=== PATIENT | female | born 1980 | race Caucasian/White ===

== ENCOUNTER 2023-12-30 14:33 | Inpatient (IN) | payer BC, SELFPAY ==
[2023-12-28 17:59] VITALS: BP 161/97
[2023-12-28 18:18] LABS: % Basophils 0.4 % (0-2); % Eosinophils 0.5 % (0-6); % Immature Granulocytes 0.4 % (0-0.5); % Lymphocytes 23.3 % (20.5-51.1); % Monocytes 5.2 % (1.7-9.3); % Neutrophils 70.2 % (42.2-75.2); Absolute Basophils 0.1 10^3/uL (0-0.2); Absolute Eosinophils 0.1 10^3/uL (0-0.7); Absolute Immature Granulocytes 0.1 10^3/uL (0-0.05); Absolute Monocytes 0.7 10^3/uL (0.1-0.6); Absolute Neutrophils 9.1 10^3/uL (1.4-6.5); Hematocrit 37.3 % (37.0-47.0); Hemoglobin 12.2 g/dL (12.0-16.0); Mean Corp Hgb Conc. 32.7 g/dL (33.0-37.0); Mean Corpuscular Hgb 28.4 pg (27.0-31.0); Mean Corpuscular Volume 86.9 fL (81.0-99.0); Mean Platelet Volume 9.9 fL (7.4-10.4); Nucleated Red Blood Cells % 0 %; Platelet Count 288 10^3/uL (130-400); Red Blood Cell Count 4.29 10^6/uL (4.20-5.40); Red Cell Dist. Width 13.5 % (11.5-14.5)
[2023-12-28 18:29] LABS: ALT (SGPT) 18 U/L (0-35); AST (SGOT) 20 U/L (14-36); Albumin 4.2 g/dl (3.5-5.0); Alkaline Phosphatase 74 U/L (38-126); Blood Urea Nitrogen 14 mg/dl (7-17); Calcium 9.2 mg/dl (8.4-10.2); Carbon Dioxide 27 mmol/L (22-30); Chloride 99 mmol/L (98-107); Glucose 117 mg/dl (70-99); Potassium 4.1 mmol/L (3.5-5.1); Sodium 136 mmol/L (135-145); Total Bilirubin 0.2 mg/dl (0.2-1.3); Total Protein 7.3 g/dl (6.3-8.2); eGFR > 60.00
--- NOTE | 2023-12-28 20:33 | ED.GENMED ---
Addendum entered and electronically signed by Gigi Brantley MD 12/29/23 00:04:
EKG normal sinus rhythm 78 with some sinus arrhythmia. No acute changes. No comparison.
Original Note:
History of Present Illness
General
Chief Complaint: Dizziness
Source: patient
Exam Limitations: none
Time Seen by Provider: 12/28/23 20:17
Travel History
Have you had any contact with someone who has COVID-19?: No
Do you have any symptoms of coronavirus? Fever > 100 degrees, chills, cough, shortness of breath, sore throat, loss of taste or smell, muscle aches, or headache?: No
History of Present Illness
History of Present Illness:
43-year-old female with 8 days of disequilibrium and vertigo. Worse at times with her eyes closed. Not truly positional. Some headache and posterior neck pain. Patient had a CT scan done days ago that showed old cerebellar infarcts. She also
has a history of hypertension.
Past History
Past History
ED Past Medical History: HTN
ED Past Surgical History: Gynecological
Review of Systems
Review of Systems
Constitutional: Reports not done
Respiratory: Reports no symptoms
Cardiac: Reports no symptoms
Neurological: Reports headache
Phy Exam
Physical Exam
Physical Exam:
GENERAL: Alert and oriented in no apparent distress
EYE: Orbits normal. Extraocular muscles intact. No rotatory nystagmus.
NECK: Supple, no significant adenopathy.
ENT: Pharynx without erythema
CARDIAC: Regular rate and rhythm without any obvious murmurs.
LUNGS: Clear breath sounds,normal
ABDOMEN: Soft, without focal tenderness or distention
NEUROLOGICAL: Alert and oriented , speech normal. Cranial nerves II through XII intact. [id number] normal. Moderately ataxic falling to the right. Positive Romberg.
SKIN: Warm and dry, no rash or lesion, no discoloration, skin intact.
MUSCULOSKELETAL: No edema,no deformity.Good color
PSYCH: Normal and appropriate interaction.
Course
Orders/Labs/Results
Orders:
Orders
12/28/23 18:06
C-Reactive Protein Urgent
Comment: ADD ON
Complete Blood Count/With Diff Urgent
Comprehensive Metabolic Panel Urgent
Erythrocyte Sed Rate Urgent
Comment: ADD ON
12/28/23 20:32
Add On- LAB Urgent
Tests Added?: esr,crp
12/28/23 20:39
Electrocardiogram (*1) Stat
Reason for Study: Other
Other Reason for Exam: neuro symptoms
Cardiac Monitoring- Treatment ONCE
EKG- Treatment ONCE
12/28/23 21:38
Admit/Transfer Patient As Directed
Co-Sign Provider:
Level of Care: Observation services
Assign to:: Telemetry
Physician / Group: donald doty
Diagnosis: headache /vertigo concern for cva/ vestibular migraine / neuritis
Reason for Telemetry: CVA/TIA
Date to Stop Telemetry: 12/31/23
Time to Stop Telemetry: 11:00
Reason for Hospitalization: headache /vertigo concern for cva/ vestibular migraine / neuritis
12/28/23 21:46
Code Status As Directed
Resuscitation Status: Full Code
12/28/23 21:58
[facility] mra [MA [facility]] Routine
Comment:
Reason For Exam: cva tia
OK for patient to be off Cardiac Monitoring for MRI: Yes
Recent pill cam endoscopy?: No
Pacemaker/Defibrillator?: No
Neck With Contrast MRA [MA Neck With Contrast] Routine
Comment:
Reason For Exam: cva tia
OK for patient to be off Cardiac Monitoring for MRI: Yes
Recent pill cam endoscopy?: No
Pacemaker/Defibrillator?: No
Diphenhydramine [Benadryl] 12.5 mg IV Q4HPRN PRN
Ketorolac [Toradol] 30 mg IV Q6HPRN PRN
Metoclopramide [Reglan] 5 mg IV Q6HPRN PRN
12/28/23 22:00
0.9% Sodium Chloride 1000 ml [Nss] 1,000 ml IV 80 mls/hr
12/28/23 22:01
Consult Neurology [NEUROLOGY CONSULT] Routine
Consulting Provider: Vinod Butler
Was physician already notified: No
Reason for consult: headache concer migraine vestibular neuritis cva tia with hx of
Consult Notification Routine
Specialty to Notify: Neurology
12/28/23 22:14
PT Consult [Pt Eval And Treat] Routine
Treatment: vestibular therapy
Activity Level: As Tolerated
12/31/23 11:00
DC Protocol for Telemetry ONCE
Abnormal Lab Results
12/28/23
18:06
WBC 13.0 H 10^3/uL
(4.8-10.8)
MCHC 32.7 L g/dL
(33.0-37.0)
Abs Immat Gran (auto) 0.1 H 10^3/uL
(0-0.05)
Absolute Neuts (auto) 9.1 H 10^3/uL
(1.4-6.5)
Absolute Monos (auto) 0.7 H 10^3/uL
(0.1-0.6)
Glucose 117 H mg/dl
(70-99)
12/28/23 18:06
12/28/23 18:06
Vital Signs
Initial and Last Documented VS:
Initial Vital Signs
Temp Pulse Resp BP Pulse Ox
98.2 F 83 16 161/97 98
12/28/23 17:59 12/28/23 17:59 12/28/23 17:59 12/28/23 17:59 12/28/23 17:59
Last Documented Vital Signs
Temp Pulse Resp BP Pulse Ox
98.2 F 80 6 148/104 98
12/28/23 17:59 12/28/23 22:15 12/28/23 22:15 12/28/23 22:00 12/28/23 22:16
MDM/Problems Addressed
Differential Diagnosis Includes:
Concern for cerebellar infarct with posterior head pain ataxia known history of cerebellar infarct.
*Critical Care Note
Total Time (30-74mins, 75-104mins- exclusive of procedures): Not Applicable
ED Attending Note
-
Portions of this chart may have been created with voice recognition software.� Occasional wrong word or��sound alike� substitutions may have occurred due to the inherent limitations of voice recognition software.
Discharge Plan
Departure
Patient Disposition: Admit
Date of Disposition: 12/28/23
Time of Disposition: 20:38
Presentation/result/management discussed w/ accepting MD/DO: Hospitalist
Discharge Problem:
Disequilibrium/ataxia, History of cerebellar infarct
Interventions
Interventions:
*Risk Screen - Suicide Last Done: 12/28/23 21:25
*General Assessment Last Done: 12/28/23 21:25
*Neglect/Abuse Screening Last Done: 12/28/23 21:25
ED- Fall Risk Assessment Last Done: 12/28/23 21:25
*ED COVID-19 Vaccine History Last Done: 12/28/23 17:59
ED- Neurological Assessment Last Done: 12/28/23 21:25
ED- Cardiac Assessment Last Done: 12/28/23 21:25
ED Swallowing Screen Last Done: 12/28/23 21:26
[2023-12-28 21:00] LABS: Erythrocyte Sed Rate 16 mm/hour (0-20)
--- NOTE | 2023-12-28 21:20 | HPS.HSE ---
Addendum entered and electronically signed by Funmilayo Lizama MD 12/28/23 22:27:
Patient seen and examined independently with [facility].� 43-year-old female past medical history of hypertension, obesity, prior lacunar infarcts presenting with severe vertigo particularly with eyes closed as well as headache and neck pain.� She was noted
to have prior lacunar infarcts [address].� She has been having chronic headaches more than 14 days in the month for more than a year described as headache all around her head for which she takes Tylenol, ibuprofen without much
improvement..�
She recently had symptoms of bodyaches, fever 1 week ago which resolved on its own.� She was negative for COVID.� Vertigo started after this acute illness and the headache has been getting worse over the past few days.� She had a CT scan a few days
ago by her primary care physician which showed old lacunar infarcts in the right cerebellum. She also has neck pain and been having vomiting and balance dysfunction without sensitivity to light.� She does sometimes see floaters but recently saw
aerial advertiser without any eye abnormalities apart from stigmatism.� She was started on Medrol Dosepak 3 days ago for vestibular neuritis without any improvement.
History is suggestive of vestibular migraines/possible vestibular neuritis from recent infection vs cerebellar infarcts.� Treat migraine with Toradol, Reglan, Benadryl.� Will check MRI/MRA head and neck.� Discontinue methylprednisolone.� Vestibular
therapy.� Neurology consulted.
Original Note:
Family Physician
-
Family Physician: Danny Reich
Chief Complaint
-
Headache, dizziness
History of Present Illness
43-year-old female complaining of 8 days of vertigo and disequilibrium along with entire head headache including posterior neck pain. She feels a sense of spinning when her eyes are closed and when she is walking feels pulled to the right side.
She does report a week prior to symptoms she had several days of bodyaches with fever states she had negative COVID test at home. She had a CAT scan done on 12/23/2023 showing old lacunar infarcts in the right cerebellum but nothing acute this was
compared to a prior CT on August 06, 2020 which was the same. She reports she had a prior lacunar infarct age 37 was seen at [place] [facility] office she does report she has been getting headaches approximately 15 days out of month
for the past 6 to 7 years but has only seen neurology once. She is not on any preventative medication. Was never formally diagnosed with migraines. She has past medical history of HTN, obesity.
Medical History
Past Medical History
Past Medical History: Reports Other
Additional Past Medical History:
HTN
prior old lacunar infarct approximately age 37 she was seen at [place] [facility] office
obesity
Past Surgical History: Reports Other
Additional Past Surgical History:
Lap band with insertion and then removal
Cholecystectomy
Tonsillectomy
Hysterectomy
section x 2
Tubal ligation
Bladder sling
Social History
Tobacco: Non-smoker
Alcohol: Occasional
Drug: None
Living: With Family (Kids)
Family History
Family History: Other (Father history multiple strokes at age 72 mother living with history of cardiomyopathy)
Allergies / Home Medications
Allergies reflects when Allergies were last updated in [employer].
Home Medications with original date entered in [employer]
Allergy/Medication List:
Allergies
Allergy/AdvReac Type Severity Reaction Status Date / Time
No Known Allergies Allergy Verified 12/28/23 18:02
Home Medications
amlodipine 10 mg tablet 10 mg PO DAILY PRN high BP 12/28/23
meclizine 25 mg tablet 25 mg PO TID PRN vertigo 12/28/23
methylprednisolone 4 mg tablets in a dose pack 4 mg PO USEASDIRECTD 12/28/23
Review of Systems
-
History Source: Patient
A 12 point ROS was completed and negative except as noted: Yes
Constitutional: Denies Fever or Fatigue
EENT: Denies Tearing or Runny Nose
Respiratory: Denies Cough or Trouble Breathing
Cardiac: Denies Chest Pain, Diaphoresis, Palpitations or Syncope
Abdomen/GI: Denies Abdominal Pain, Nausea, Vomiting, Diarrhea, Constipated or Bloody Stools
: Denies Dysuria, Frequency, Flank Pain, Incontinence or Difficulty Voiding
Musculoskeletal: Denies Joint Pain, Joint Swelling or Edema
Skin: Denies Itching or Rash
Neurological: Reports Dizzy and Headache; Denies Weakness or Numbness
Endocrine: Reports No Symptoms
Hematologic/Lymphatic: Reports No Symptoms
Psych: Reports Calm
Physical Exam
Vital Signs
Vital Signs
Temp Pulse Resp BP Pulse Ox
98.2 F 83 16 161/97 98
12/28/23 17:59 12/28/23 17:59 12/28/23 17:59 12/28/23 17:59 12/28/23 17:59
Physical Exam
General: Comfortable and Conversant; No Pain, Fever or Chills
HEENT: NormoCephalic, Anicteric, PERRLA, No Ptosis, Neck Nontender and Other (EOMs intact negative nystagmus); No Pharyngeal Efythema
Respiratory: Clear; No Wheezes, Rales or Rhonchi
Cardiac: S1/S2 and Regular Rhythm
Breast: Deferred by me
GI: Non Tender, Normal Bowel Sounds and No Hepatosplenomegaly
Rectal: Deferred by Provider
Genito-urinary: Deferred by me
Musculoskeletal: No Clubbing, No Cyanosis and No Edema
Skin: Warm and Dry; No Rash or Jaundice
Neuro: AO x 3, No Motor Deficits, Nonfocal/grossly intact, Cranial Nerves Intact and No Sensory Deficits; No Slurred Speech, Facial Droop, Tremors or Sedated
Psych: Calm
Laboratory Results
-
12/28/23 18:06
12/28/23 18:06
Laboratory Results
Total Bilirubin 0.2 mg/dl (0.2-1.3) 12/28/23 18:06
AST 20 U/L (14-36) 12/28/23 18:06
ALT 18 U/L (0-35) 12/28/23 18:06
Alkaline Phosphatase 74 U/L (38-126) 12/28/23 18:06
Data Reviewed
-
Lab Data: Labs Reviewed by me
Impression/Plan
-
Impression/plan:
Observation telemetry
#Headache with vertigo concern for vestibular migraine / vs vestibular neuritis vs cva
#History of old lacunar infarct approximately age 37 seen by [place] [facility] at [facility]
Obtain records from [facility] office
-MRI /. MRA brain/ Neck
-check Lipid profile , hgb a1c
-Iv Toradol, IV reglan, Iv benadryl 12.5 mg
-Iv Nss
- stop medrol dose pack due to no results
-PT/OT consult
CT head 12/23/2023 read by Ronnie Gallardo DO at 10:22 AM
1. There are old lacunar infarcts in the right cerebellum which was seen on the previous examination no other areas of altered attenuation are identified
2. No evidence of intracerebral hemorrhage
3. Ventricles are average size and configuration
4. Calvarium appears to be intact
5. Visualized portions of the paraspinal nasal cyst mastoid air cells are well aerated.
This was compared to previous examination performed on August 06, 2020
#HTN-benign
161/97
-Continue amlodipine 10 mg daily > 140/90
EKG sinus rhythm with marked sinus arrhythmia 75 bpm, QTc 419 MS no other EKGs
#Leukocytosis likely from recent 3-day course methylprednisone
WBC 13,nontoxic-appearing, afebrile
Follow CBC
#Obesity due to excess calorie consumption�BMI 37.8 kg
History of gastric lap band with removal
Weight loss recommended
DVT prophylaxis
SCDs
Full code
[2023-12-28 21:22] VITALS: BP 152/99
[2023-12-28 21:23] VITALS: BMI 37.8
[2023-12-28 22:00] VITALS: BP 148/104
[2023-12-28 22:09] LABS: C-Reactive Protein < 5.00 mg/L (0.0-10.00)
[2023-12-28] MEDS: NSS 1000 IV (22:35)
[2023-12-28] MEDS: FLUSH (NSS) 1 FLUSH IV (22:35)
[2023-12-28] MEDS: REGLAN 5 MG IV (22:42)
[2023-12-28] MEDS: BENADRYL 12.5 MG IV (23:59)
[2023-12-28] MEDS: TORADOL 30 MG IV (23:59)
[2023-12-29] VITALS (8 sets, daily range): BP systolic 122–152; BP diastolic 79–100; PULSE 75–81
[2023-12-29 06:24] LABS: % Basophils 0.4 % (0-2); % Eosinophils 1.3 % (0-6); % Immature Granulocytes 0.4 % (0-0.5); % Lymphocytes 39.3 % (20.5-51.1); % Monocytes 5.9 % (1.7-9.3); % Neutrophils 52.7 % (42.2-75.2); Absolute Eosinophils 0.1 10^3/uL (0-0.7); Absolute Lymphocytes 3.5 10^3/uL (1.2-3.4); Absolute Monocytes 0.5 10^3/uL (0.1-0.6); Absolute Neutrophils 4.7 10^3/uL (1.4-6.5); Hematocrit 34.2 % (37.0-47.0); Hemoglobin 11.3 g/dL (12.0-16.0); Mean Corpuscular Hgb 28.3 pg (27.0-31.0); Mean Corpuscular Volume 85.7 fL (81.0-99.0); Nucleated Red Blood Cells % 0 %; Platelet Count 268 10^3/uL (130-400); Red Blood Cell Count 3.99 10^6/uL (4.20-5.40); Red Cell Dist. Width 13.5 % (11.5-14.5)
[2023-12-29 06:44] LABS: ALT (SGPT) 17 U/L (0-35); AST (SGOT) 18 U/L (14-36); Albumin 3.7 g/dl (3.5-5.0); Alkaline Phosphatase 70 U/L (38-126); Blood Urea Nitrogen 16 mg/dl (7-17); Calcium 9.1 mg/dl (8.4-10.2); Carbon Dioxide 27 mmol/L (22-30); Chloride 104 mmol/L (98-107); Estimated Creatinine Clearance > 125 ml/min; Glucose 125 mg/dl (70-99); HDL Cholesterol 55 mg/dl; LDL Cholesterol, Calculated 68 mg/dl; Potassium 3.7 mmol/L (3.5-5.1); Sodium 138 mmol/L (135-145); Total Bilirubin 0.3 mg/dl (0.2-1.3); Total Cholesterol 148 mg/dl (50-199); Total Protein 6.5 g/dl (6.3-8.2); Triglyceride 129 mg/dl (10-149); Very Low Density Lipoprotein 25 mg/dl (0-30); eGFR > 60.00
--- NOTE | 2023-12-29 08:06 | W.PN.HOSP.TC ---
Today's Communication/Plan
-
see bold
Assessment / Plan
Assessment / Plan
HPI: 43-year-old female complaining of 8 days of vertigo and disequilibrium along with entire head headache including posterior neck pain.� She feels a sense of spinning when her eyes are closed and when she is walking feels pulled to the right
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
this was compared to a prior CT on August 06, 2020 which was the same.� She reports she had a prior lacunar infarct age 37 was seen at [place] [facility]� office she does report she has been getting headaches approximately 15 days out
of month for the past 6 to 7 years but has only seen neurology once.� She is not on any preventative medication.� Was never formally diagnosed with migraines.� She has past medical history of HTN,� obesity.
#Dizziness/vertigo
Appreciate neurology input, check brain MRI
Obtain medical records from outside neurology practices
Start aspirin 81 mg daily, LDL 68
PT/OT
#Headache
Resolved presently, neurology recommends Compazine as needed
#Vitamin D deficiency
Start vitamin D supplementation
#Benign essential hypertension
Continue amlodipine 10 mg daily prn
#Leukocytosis
From recent methylprednisolone use
Resolved
Obesity due to excess calories
Affects all aspects of care
DVT prophylaxis�SCDs
Full code
Physical Exam
General: Obese, no acute distress
HEENT: Normocephalic, Atraumatic, EOMI, MMM
Respiratory: Clear to Auscultation bilaterally
Cardiac: Normal S1/S2, Regular Rate and Rhythm
GI: Soft, Nontender, Nondistended, Normal Bowel Sounds
Extremities: No Clubbing, Cyanosis, or Edema
Neuro: Nonfocal/Grossly Intact
Psych: Calm, Cooperative
Derm: No Visible lesions
Anticipated Discharge: 24 - 48 hours
Subjective/Interval History
-
Date of Service: December 29, 2023
Patient continues to have both lightheadedness and vertigo. She states her symptoms are worse with turning her head to the right. Denies headache. No nausea, no vomiting. No fever.
Objective Data
-
Labs:
Laboratory Results
12/29/23
06:08
WBC 9.0
Hgb 11.3 L
Hct 34.2 L
Plt Count 268
Sodium 138
Potassium 3.7
Chloride 104
Carbon Dioxide 27
BUN 16
Creatinine 0.6
Glucose 125 H
Calcium 9.1
Total Bilirubin 0.3
AST 18
ALT 17
Alkaline Phosphatase 70
Vital Signs:
Vital Signs
Temp Pulse Resp BP Pulse Ox
98.3 F 62 15 125/90 99
12/29/23 07:15 12/29/23 07:00 12/29/23 07:00 12/29/23 05:45 12/29/23 00:00
--- NOTE | 2023-12-29 08:23 | CON.NEURO4 ---
Addendum entered and electronically signed by Vinod Butler MD 12/29/23 15:04:
Studies reviewed.
I have personally examined the patient. I reviewed and agree with the CONTROL SYSTEMS DESIGNER's Note.
My addenda:
Awake, alert, interactive. No acute distress.
Speech intact.
Follows 2-step requests w/o difficulty. No tremor.
Extra-ocular movements suggest decreased upgaze with right eye compared with left.
Facial movements full and symmetric. Hearing intact to normal conversational volume.
Normal UE movements bilaterally.
Neck: full ROM.
Chest: no dyspnea
Heart: no JVD
Ext: (-) Clubbing, (-) Cyanosis, (-) Edema
IMPRESSIONS/RECOMMENDATIONS:
Abrupt onset of Headache, vertigo, and prior history suggestive of abnormal findings by MRI in the right cerebellum chronically. The patient has been seen by an outside neurology group who did not seem to endorse the diagnosis of stroke
Differential diagnosis is broad based on the patient's prior history more than current symptoms. Currently includes vestibular migraine, multiple sclerosis, CADASIL, Idiopathic intracranial hypertension
Would check MRI of brain
Attempt to obtain prior records from outside neurology practice
Consider the use of acetazolamide based on MRI results
Provide aspirin 81 mg daily until clarity regarding diagnosis
Provide prochlorperazine as treatment for significant headache until additional information is obtained
D/W patient
Will continue to follow patient.
Original Note:
Documented by User: MONIKA Malone 12/29/23 12:18
Consultation - Neurology 4
-
CONSULTING PHYSICIAN: Dr. Butler
REFERRING PHYSICIAN: MONIKA Drew
DICTATED BY: MONIKA Malone
DATE/TIME OF REQUEST: 12/28/2023 2201
DATE/TIME OF CONSULTATION: 12/29/2023 0900
Reason for Consultation: headache/vertigo
History of Present Illness:
This is a 43-year-old right handed female with a past medical history of HTN, headaches, stroke and obesity who presented to the ER complaining of 8 days of vertigo and disequilibrium along with entire head headache including posterior neck pain.�
She reports she started with headache pressure like about 9 days ago with associated neck pain. She reports dizziness started about 8 days ago and balance difficulty about 7 days ago. She describes dizziness as a sense of spinning that is worse
with eyes closed. She denies any weakness, but when ambulating reports he feels she is falling to her right.� She has had constant nausea, worse when dizziness increases. She describes pain as pressure, all over varying in intensity from 6-10/10.
She had reported ongoing body aches and feeling unwell and did have COVID test which was negative.� She had a CAT scan done on 12/23/2023 ordered by PCP showing old lacunar infarcts in the right cerebellum but nothing acute this was compared to a
prior CT on August 06, 2020 which was the [address]. CT head was not done at (was completed at [facility]) and we do not have formal report.� She reports she had a prior lacunar infarct age 37 was seen at [place] [facility], stroke was
an incidental finding as she was seeing them for an increase in headaches. She was not placed on any preventative medication.� She does report she had additional testing for stroke, but does not recall which testing was completed. She states she
was not placed on daily aspirin. She does not recall why she stopped seeing a neurologist. She does report intermittent neck pain, but not to this severity. She has never sought treatment for neck pain.
Past Medical History
Past Medical History: Reports Other
Additional Past Medical History:
HTN
prior old lacunar infarct approximately age 37
�obesity
Past Surgical History:
Lap band with insertion and then removal
Cholecystectomy
Tonsillectomy
Hysterectomy
section x 2
Tubal ligation
Bladder sling
Social History
Tobacco: Non-smoker
Alcohol: Occasional
Drug: None
Living: With Family (Kids)
Family History
Family History: Other (Father history multiple strokes at age 72 mother living with history of cardiomyopathy)
Allergies: see below
Home Medications: see below
Review of Symptoms:
Patient denies fever, chest pain, shortness of breath, GI or symptoms. Reports headache, dizziness and nausea.
�P
see below
Physical Exam:
The patient is afebrile, heart sounds S1 and S2 are regular, and chest is clear to auscultation bilaterally.
Neurologic Examination:
The patient is awake, alert and oriented x 3. She is able to follow commands and answer questions appropriately. There is no aphasia or dysarthria. On cranial nerve assessment, pupils are 3 mm bilateral, round and reactive to light and
accommodation. Visual saldivar are full. 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 Facial sensations are intact and bilaterally symmetrical. She has a mild right eye ptosis. Hearing is intact bilaterally to normal conversation
volume. Tongue palate and uvula are midline. Sternocleidomastoid strengths are full bilaterally. Motor strengths are 5/5 bilateral upper and lower extremities on medical research [place] scale. There is no drift or involuntary movement noted. Deep
tendon reflexes are 2+ bilateral upper and lower extremities and Babinski is absent bilaterally. Sensations of pain, touch, temperature and vibration are intact and bilaterally symmetrical. There was no extinction noted on double simultaneous
stimulation. Coordination is intact by finger to nose bilaterally.
Lab Results: see below
Neuro Imaging: none for review
Impression:
WALLY MCCORD is a 43 year old F who has presented to the hospital with severe headache, dizziness, disequilibrium and nausea.
Differentials for the patient's presentation include:
1. Vestibular migraine
2. Idiopathic intracranial hypertension he has no risk factors
3. less likely acute stroke
Recommendations:
-MRI brain with and without contrast
-Start daily aspirin 81 mg as patient with history of stroke
-If stroke noted on MRI brain will order additional stroke workup
-Start Compazine 10 mg every 6 hours as needed for headache
-goal normotension
-LDL was 68
-HgbA1c 5.8-goal normoglycemia
-Consider acetazolamide if idiopathic intracranial hypertension noted on MRI brain
-consider PT evaluation
Discussed patient care with: Patient and Dr. Butler
Medication and Allergies
Home Medications
Home Medications
Medication Instructions Recorded
amlodipine 10 mg tablet 10 mg PO DAILY PRN high BP 12/28/23
meclizine 25 mg tablet 25 mg PO TID PRN vertigo 12/28/23
methylprednisolone 4 mg tablets in 4 mg PO USEASDIRECTD 12/28/23
a dose pack
Allergies
Allergies
Allergy/AdvReac Type Severity Reaction Status Date / Time
No Known Allergies Allergy Verified 12/28/23 18:02
Vital Signs and Labs
-
Vital Signs and Labs:
Vital Signs
Temp Pulse Resp BP Pulse Ox
98.3 F 62 15 125/90 99
12/29/23 07:15 12/29/23 07:00 12/29/23 07:00 12/29/23 05:45 12/29/23 00:00
Lab Results
12/29/23 06:08
12/29/23 06:08
Sodium 138 mmol/L (135-145) 12/29/23 06:08
Potassium 3.7 mmol/L (3.5-5.1) 12/29/23 06:08
BUN 16 mg/dl (7-17) 12/29/23 06:08
Glucose 125 mg/dl (70-99) H 12/29/23 06:08
Calcium 9.1 mg/dl (8.4-10.2) 12/29/23 06:08
LDL Cholesterol, Calc 68 mg/dl 12/29/23 06:08

Documented by User: Vinod Butler MD 12/29/23 14:58
Consultation - Neurology 4
-
CONSULTING PHYSICIAN: Dr. Butler
REFERRING PHYSICIAN: MONIKA Drew
DICTATED BY: MONIKA Malone
DATE/TIME OF REQUEST: 12/28/2023 2201
DATE/TIME OF CONSULTATION: 12/29/2023 0900
Reason for Consultation: headache/vertigo
History of Present Illness:
This is a 43-year-old right handed female with a past medical history of HTN, headaches, stroke and obesity who presented to the ER complaining of 8 days of vertigo and disequilibrium along with entire head headache including posterior neck pain.�
She reports she started with headache pressure like about 9 days ago with associated neck pain. She reports dizziness started about 8 days ago and balance difficulty about 7 days ago. She describes dizziness as a sense of spinning that is worse
with eyes closed. She denies any weakness, but when ambulating reports he feels she is falling to her right.� She has had constant nausea, worse when dizziness increases. She describes pain as pressure, all over varying in intensity from 6-10/10.
She had reported ongoing body aches and feeling unwell and did have COVID test which was negative.� She had a CAT scan done on 12/23/2023 ordered by PCP showing old lacunar infarcts in the right cerebellum but nothing acute this was compared to a
prior CT on August 06, 2020 which was the same. CT head was not done at (was completed at [facility]) and we do not have formal report.� She reports she had a prior lacunar infarct age 37 was seen at [place] [facility], stroke was
an incidental finding as she was seeing them for an increase in headaches. She was not placed on any preventative medication.� She does report she had additional testing for stroke, but does not recall which testing was completed. She states she
was not placed on daily aspirin. She does not recall why she stopped seeing a neurologist. She does report intermittent neck pain, but not to this severity. She has never sought treatment for neck pain.
Past Medical History
Past Medical History: Reports Other
Additional Past Medical History:
HTN
prior old lacunar infarct approximately age 37
�obesity
Past Surgical History:
Lap band with insertion and then removal
Cholecystectomy
Tonsillectomy
Hysterectomy
section x 2
Tubal ligation
Bladder sling
Social History
Tobacco: Non-smoker
Alcohol: Occasional
Drug: None
Living: With Family (Kids)
Family History
Family History: Other (Father history multiple strokes at age 72 mother living with history of cardiomyopathy)
Allergies: see below
Home Medications: see below
Review of Symptoms:
Patient denies fever, chest pain, shortness of breath, GI or symptoms. Reports headache, dizziness and nausea.
Physical Exam:
The patient is afebrile, heart sounds S1 and S2 are regular, and chest is clear to auscultation bilaterally.
Neurologic Examination:
The patient is awake, alert and oriented x 3. She is able to follow commands and answer questions appropriately. There is no aphasia or dysarthria. On cranial nerve assessment, pupils are 3 mm bilateral, round and reactive to light and
accommodation. Visual saldivar are full. 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 Facial sensations are intact and bilaterally symmetrical. She has a mild right eye ptosis. Hearing is intact bilaterally to normal conversation
volume. Tongue palate and uvula are midline. Sternocleidomastoid strengths are full bilaterally. Motor strengths are 5/5 bilateral upper and lower extremities on medical research [place] scale. There is no drift or involuntary movement noted. Deep
tendon reflexes are 2+ bilateral upper and lower extremities and Babinski is absent bilaterally. Sensations of pain, touch, temperature and vibration are intact and bilaterally symmetrical. There was no extinction noted on double simultaneous
stimulation. Coordination is intact by finger to nose bilaterally.
Lab Results: see below
Neuro Imaging: none for review
Impression:
WALLY MCCORD is a 43 year old F who has presented to the hospital with severe headache, dizziness, disequilibrium and nausea.
Differentials for the patient's presentation include:
1. Vestibular migraine
2. Idiopathic intracranial hypertension he has no risk factors
3. less likely acute stroke
Recommendations:
-MRI brain with and without contrast
-Start daily aspirin 81 mg as patient with history of stroke
-If stroke noted on MRI brain will order additional stroke workup
-Start Compazine 10 mg every 6 hours as needed for headache
-goal normotension
-LDL was 68
-HgbA1c 5.8-goal normoglycemia
-Consider acetazolamide if idiopathic intracranial hypertension noted on MRI brain
-consider PT evaluation
Discussed patient care with: Patient and Dr. Butler
[2023-12-29 08:43] LABS: Glycohemoglobin (HgbA1c) 5.8 % (4.0-5.6)
[2023-12-29 09:05] LABS: Erythrocyte Sed Rate 17 mm/hour (0-20)
[2023-12-29 09:11] LABS: Vitamin D, 25-OH*** 21.5 ng/mL (30-80)
[2023-12-29 09:28] LABS: TSH Reflex To Free T4 5.19 uIU/ml (0.47-4.68)
[2023-12-29 09:29] LABS: Ferritin 48.7 ng/ml (6.24-137)
[2023-12-29 09:57] LABS: Free T4 1.13 ng/dl (0.78-2.19)
[2023-12-29 10:06] LABS: Folate 8.8 ng/ml (2.76-20); Vitamin B12 351 pg/ml (239-931)
[2023-12-29] MEDS: COMPAZINE 10 MG IV (10:10)
--- NOTE | 2023-12-29 12:52 | PTOTSP ---
pt currently demonstrates ability to complete simple ADLs, functional transfers, ambulation with supervision to no assistance. pt appears to not feel well, moving slow and cautious in room due to dizziness. no acute OT needs identified at this time,
will sign off.
[2023-12-29] MEDS: NSS 1000 IV (14:59)
[2023-12-29] MEDS: ASPIR LOW (ENTERIC COATED) 81 MG PO (15:01)
[2023-12-29] MEDS: ATIVAN 1 MG PO (15:38)
[2023-12-29] MEDS: TORADOL 30 MG IV ×2 (17:24→23:44)
[2023-12-29] MEDS: DRISDOL (VITAMIN D2) 50000 UNITS PO (17:30)
[2023-12-29] MEDS: REGLAN 5 MG IV (23:45)
[2023-12-30] VITALS (7 sets, daily range): BP systolic 132–151; BP diastolic 86–98; PULSE 87; O2SAT 95; BMI 37.5
[2023-12-30] MEDS: NORVASC 10 MG PO (00:30)
--- NOTE | 2023-12-30 03:28 | DOWNTIME ---
There was a [employer] Client Beadworker Downtime on 12/30/2023 from 0100 to 12/30/2023 at 0322. Downtime documentation of patient's care, including medication administrations, has been reconciled in the electronic record per guidelines. Refer to the
patient's paper chart under the miscellaneous tab to see printed paper medication records and downtime forms.
[2023-12-30] MEDS: BENADRYL 12.5 MG IV ×2 (03:57→20:19)
[2023-12-30] MEDS: NSS 1000 IV (03:57)
[2023-12-30] MEDS: VITAMIN B-12 1000 MCG PO (08:16)
[2023-12-30] MEDS: VITAMIN D3 (cholecalciferol) 50 MCG PO (08:16)
[2023-12-30] MEDS: ASPIR LOW (ENTERIC COATED) 81 MG PO (08:16)
--- NOTE | 2023-12-30 08:16 | W.PN.HOSP.TC ---
Today's Communication/Plan
-
steroids as per neuro
pt/ot
vit B12 and D supplementation
follow up MRI spine
GI ppx protonix
Assessment / Plan
Assessment / Plan
HPI: 43-year-old female complaining of 8 days of vertigo and disequilibrium along with entire head headache including posterior neck pain.� She feels a sense of spinning when her eyes are closed and when she is walking feels pulled to the right
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
this was compared to a prior CT on August 06, 2020 which was the same.� She reports she had a prior lacunar infarct age 37 was seen at [place] [facility]� office she does report she has been getting headaches approximately 15 days out
of month for the past 6 to 7 years but has only seen neurology once.� She is not on any preventative medication.� Was never formally diagnosed with migraines.� She has past medical history of HTN,� obesity.
#Dizziness/vertigo
#MS Flare
MRI brain appreciated
-multiple foci increased T2 signal intensity suggestive MS flare 'Burris's fingers'
-abnormal T2 signal intensity Left Temporal Lobe consistent w/ focus active demyelination vs glioma (short term follow up MRI 1-2 months recommended)
Neuro eval appreciated
- follow up MRI spine
-LP not indicated
-Methylprednisolone 1 g IV x5 days started
-Vit B12 and D repletion
#Headache
Resolved presently, following once rizatriptan 12/29
#Vitamin D deficiency
cont vitamin D supplementation
#Benign essential hypertension
Continue amlodipine 10 mg daily prn consider converting to scheduled
#Leukocytosis
From recent methylprednisolone use
Resolved
Obesity due to excess calories
Affects all aspects of care
DVT prophylaxis�SCDs
GI ppx Protonix
Full code
cont PT/OT
discussed with patient and her parents
I spent a total of 50 minutes with the patient or on the floor. More than 50% of this time involved counseling and coordination of care.
Physical Exam
General: Obese, no acute distress
HEENT: Normocephalic, Atraumatic, EOMI, MMM
Respiratory: Clear to Auscultation bilaterally
Cardiac: Normal S1/S2, Regular Rate and Rhythm
GI: Soft, Nontender, Nondistended, Normal Bowel Sounds
Extremities: No Clubbing, Cyanosis, or Edema
Neuro: Nonfocal/Grossly Intact
Psych: Calm, Cooperative
Derm: No Visible lesions
Anticipated Discharge: 24 - 48 hours
Subjective/Interval History
-
Date of Service: December 30, 2023
Seen and examined at bedside in no acute distress ambulating without issues. reports dizziness nausea headache improved after prn medications. reports feeling overwhelmed regarding MS diagnosis.
Objective Data
-
Vital Signs:
Vital Signs
Temp Pulse Resp BP Pulse Ox
98.2 F 64 16 145/98 98
12/30/23 07:00 12/30/23 07:00 12/30/23 07:00 12/30/23 07:00 12/30/23 07:00
I&O
12/29/23 12/30/23 12/31/23
06:59 06:59 06:59
Intake Total 2580 / 2580
Balance 2580 / 2580
[2023-12-30] MEDS: DRISDOL (VITAMIN D2) 50000 UNITS PO (08:18)
[2023-12-30] MEDS: SOLU-MEDROL 258 MG IV (08:19)
--- NOTE | 2023-12-30 09:31 | W.PN.NEURO.1 ---
Addendum entered and electronically signed by Vinod Butler MD 12/30/23 11:37:
Initiate rizatriptan for headache control and dimenhydrinate to reduce dizziness
Original Note:
Today's Communication / Plan
-
Reviewed at length with the patient was the likely diagnosis of relapsing remitting multiple sclerosis
Check MRI of entire spine with and without contrast to ascertain the extent of lesions
LP at this wouldn't clearly add assistance for diagnosis
Start Methylprednisolone 1 gm IV x 5 days
Patient advised to consider medication for MS control
Begin vitamin B12 replacement for deficiency, less than 400
Begin vitamin D replacement due to deficiency
Will follow.
Neuro Assessment/Plan
Assessment
Abrupt onset of Headache, vertigo, and prior history suggestive of abnormal findings by MRI in the right cerebellum chronically. The patient has been seen by an outside neurology group who did not seem to endorse the diagnosis of stroke
MRI of brain performed with and without contrast is suggestive of multiple sclerosis based on lesions in typical locations including corpus callosum and paracortical locations as well as infratentorial lesion in the left shivani and left cerebellum.
The lesion in the right cerebellum is most likely a prior MS lesion now chronic. Additionally, presence of enhancing and nonenhancing lesions is suggestive of a demyelinating process.
Differential diagnosis is multiple sclerosis, Lupus, atypical demyelinating syndrome such as MOGAD, NMOSD
Plan
Reviewed at length with the patient was the likely diagnosis of relapsing remitting multiple sclerosis
Check MRI of entire spine with and without contrast to ascertain the extent of lesions
LP at this wouldn't clearly add assistance for diagnosis
Start Methylprednisolone 1 gm IV x 5 days
Patient advised to consider medication for MS control
Begin vitamin B12 replacement for deficiency, less than 400
Begin vitamin D replacement due to deficiency
Will follow.
Subjective/Objective
Subjective Data
Date of Service: December 30, 2023
Continued nausea, dizziness with right-sided.
Headache 01/12.
Objective Data
Vital Signs
Temp Pulse Resp BP Pulse Ox
36.8 C 64 16 145/98 98
12/30/23 07:00 12/30/23 07:00 12/30/23 07:00 12/30/23 07:00 12/30/23 07:00
Lab Results
12/29/23 06:08
12/29/23 06:08
Sodium 138 mmol/L (135-145) 12/29/23 06:08
Potassium 3.7 mmol/L (3.5-5.1) 12/29/23 06:08
BUN 16 mg/dl (7-17) 12/29/23 06:08
Glucose 125 mg/dl (70-99) H 12/29/23 06:08
Calcium 9.1 mg/dl (8.4-10.2) 12/29/23 06:08
LDL Cholesterol, Calc 68 mg/dl 12/29/23 06:08
Vitamin B12 351 pg/ml (239-931) 12/29/23 06:08
Patient Allergies
No Known Allergies Allergy (Verified 12/28/23 18:02)
Review of Systems
-
History Source: Patient
All other systems: Reviewed and negative
EENT: Negative Decreased Vision or Swallowing Difficulty
Respiratory: Negative Trouble Breathing
Cardiac: Negative Chest Pain
Abdomen/GI: Negative Incontinence of Stool
Genitourinary: Negative Incontinence
Musculoskeletal: Neck Pain; Negative Back Pain
Neuro: Dizzy and Headache
Physical Exam
-
General: No Apparent Distress and Appears Stated Age
Eyes: Round OU, [place] Conjunctivae and No Ptosis
HEENT: Anicteric and Moist Mucous Membranes
Neck: Full Range of Motion
Respiratory: No Dyspnea
Cardiac: No JVD
GI: Non-distended
Skin: Unremarkable
Extremities: No Clubbing, No Cyanosis and No Edema
Psych: Intact Judgement/Insight
Extended Neurological Exam
Mood & Affect: Mood Unremarkable and Affect Unremarkable
Attention Span & Concentration: Awake, Alert, Interactive and No Difficulty with 2 Step Request
Memory: Unremarkable
Tremor: Hand Tremor Absent and Head Tremor Absent
Speech: Quality Unremarkable and Quantity Unremarkable
Cranial Nerve II: Left Eye: Pupillary Size Unremarkable and Visual Mccann Grossly Intact
Cranial Nerve II: Right Eye: Pupillary Size Unremarkable and Visual Mccann Grossly Intact
Cranial Nerves III, IV, : Extraocular Movement: Other (Mildly reduced upgaze on the right)
Cranial Nerve VII: Facial Symmetry: Normal Facial Symmetry
Cranial Nerve VIII: Hearing: Unremarkable Hearing to Normal Conversational Volume
Muscle Strength, Overall: Spontaneously Moves (All extremities)
Muscle Bulk & Tone: Bulk Unremarkable and Tone Unremarkable
Pronator Drift: No Drift in Upper Extremities
Touch Sensation: Unremarkable
Coordination: Rhehcy-folr-adatzy Testing Unremarkable
Gait & Station: Wide Based
Data Reviewed
-
MRI Head: Report Reviewed and Image Reviewed
Labs: Report Reviewed
Reviewed with: Physician, Nurse Practioner and Patient
Old Records: Summarized
[2023-12-30] MEDS: MAXALT MLT (ORALLY DISINTEGRATING) 10 MG PO (10:00)
[2023-12-30] MEDS: dimenhyDRINATE 50 MG IV (10:05)
[2023-12-30] MEDS: NSS (PRESERVATIVE FREE) 10 ML INJ (10:05)
[2023-12-30] MEDS: ZOFRAN 4 MG IV ×2 (10:31→20:21)
[2023-12-30] MEDS: ATIVAN 1 MG PO (11:39)
--- NOTE | 2023-12-30 16:02 | CM ---
Addendum entered by Susie Clemons RN 12/30/23 16:11:
CHAMBERS letter given explained signed on chart.
Original Note:
Alert awake oriented patient who lives with her 2 children Bonnie 26 yo with CP and son 19yo [place]. She has her parents as support too. They live in 1 story home with ramp to enter and bath/ bed room on first floor. She is independent in driving and
all activities of daily living.Offered VN she declined.
No SNF/VN hx
Pharmacy [facility]
PCP Dr Reich
PLAN Home no needs
[2023-12-30] MEDS: PROTONIX 40 MG PO (20:18)
[2023-12-30] MEDS: TORADOL 30 MG IV (20:20)
[2023-12-31] VITALS (7 sets, daily range): BP systolic 117–149; BP diastolic 75–90
[2023-12-31] MEDS: MAXALT MLT (ORALLY DISINTEGRATING) 10 MG PO (02:24)
[2023-12-31] MEDS: TORADOL 30 MG IV ×2 (03:57→21:09)
[2023-12-31] MEDS: BENADRYL 12.5 MG IV ×2 (03:58→21:08)
--- NOTE | 2023-12-31 05:36 | PTCARENOTE ---
Patient with headache all night, she did not sleep at all. She was medicated with benadryl and toradol twice and Rizatriptan once. Headache is somewhat better now, she continues to have pain on left side of the head.
[2023-12-31 06:20] LABS: Hematocrit 35.7 % (37.0-47.0); Hemoglobin 12.3 g/dL (12.0-16.0); Mean Corp Hgb Conc. 34.5 g/dL (33.0-37.0); Mean Corpuscular Hgb 28.7 pg (27.0-31.0); Mean Corpuscular Volume 83.4 fL (81.0-99.0); Mean Platelet Volume 10.4 fL (7.4-10.4); Platelet Count 309 10^3/uL (130-400); Red Blood Cell Count 4.28 10^6/uL (4.20-5.40); Red Cell Dist. Width 13.1 % (11.5-14.5); White Blood Cell Count 17.3 10^3/uL (4.8-10.8)
[2023-12-31 06:40] LABS: Blood Urea Nitrogen 13 mg/dl (7-17); Calcium 10.2 mg/dl (8.4-10.2); Carbon Dioxide 23 mmol/L (22-30); Chloride 102 mmol/L (98-107); Estimated Creatinine Clearance > 125 ml/min; Glucose 130 mg/dl (70-99); Phosphorus 4.5 mg/dl (2.5-4.5); Potassium 4.5 mmol/L (3.5-5.1); Sodium 137 mmol/L (135-145); eGFR > 60.00
[2023-12-31] MEDS: VITAMIN D3 (cholecalciferol) 50 MCG PO (07:21)
[2023-12-31] MEDS: PROTONIX 40 MG PO (07:21)
[2023-12-31] MEDS: VITAMIN B-12 1000 MCG PO (07:21)
[2023-12-31] MEDS: ASPIR LOW (ENTERIC COATED) 81 MG PO (07:21)
[2023-12-31] MEDS: SOLU-MEDROL 258 MG IV (07:43)
--- NOTE | 2023-12-31 08:09 | W.PN.NEURO.1 ---
Addendum entered and electronically signed by Golden Thompson MD 12/31/23 11:54:
I saw and evaluated the patient I reviewed the note by Dorene Valencia agree with the findings the following comments:
43-year-old woman with a past no history of episode of migraine presented to hospital with severe headache vertigo and mild balance difficulties. Her headache is improved. Brain imaging showed significant abnormalities suspicious for possible
demyelinating disease.
Neurologic examination shows some mild limitation in right eye elevation, other cranial nerves normal, power is normal, coordination normal, patient shows some mild unsteadiness in gait and consistently leans to the right when walking.
Brain MRI reviewed which is significant for postcontrast enhancing lesions in the right cortical region of the temporal lobe as well as corpus callosum. There are chronic lesions on the white matter of the hemispheres bilaterally. No spinal
lesions on MRI of the CT and L-spine.
Assessment: Patient does meet a criteria for multiple sclerosis at this point given a clear attack with focal neurologic dysfunction with right eye elevation difficulty as well as right-sided persistent gait leaning to the right, along with evidence
of both acute and chronic lesions consistent with demyelination on the brain MRI and characteristic locations, meets criteria for both dissemination in time and space based on the MRI in addition to 1 clinical attack. Differential diagnosis would
include other demyelinating disorders such as neuromyelitis optica and Mogad, not consistent with a vasculitis or vasculopathy.
By history there seems to been a right cerebellar stroke around 2019 possibly due to acquired hypercoagulable state from COVID or this may have been the beginnings of multiple sclerosis or demyelinating disease.
Recommendations
-Pending lab studies for KATHIE ESR CRP, vitamin D Lyme disease
-Importantly has pending lab studies for NMO with aqua porin 4 for as well as MoGad antibodies
-Continue steroids for 5 days total
-PT/OT
-Educated on different disease modifying therapies for MS
Will follow
Original Note:
Today's Communication / Plan
-
.
Neuro Assessment/Plan
Assessment
This is a 43-year-old female who presented to on 12/28/23 with report of abrupt onset of headache and vertigo starting 8 days earlier, and prior history at age 37 suggestive of abnormal findings by MRI in the right cerebellum chronically. The
patient has been seen by an outside neurology group who did not seem to endorse the diagnosis of stroke.
-MRI of brain performed with and without contrast is suggestive of multiple sclerosis based on lesions in typical locations including corpus callosum and paracortical locations as well as infratentorial lesion in the left shivani and left cerebellum.
The lesion in the right cerebellum is most likely a prior MS lesion now chronic. Additionally, presence of enhancing and nonenhancing lesions is suggestive of a demyelinating process.
-MRI Cervical, Thoracic, and Lumbar Spine 12/30/23: No MRI evidence for abnormal signal or enhancement of the spinal cord in the cervical, thoracic, or lumbar spine. Grade 2 anterolisthesis of L5 on S1. L5 right-sided pars defect, and possible
left-sided pars defect. Partially imaged pelvic findings include suspected right hydrosalpinx and a small complex left ovarian cyst. Pelvic ultrasound could be considered for further evaluation.
-MRA Neck/COW 12/29/23: No acute intracranial abnormality noted. Less than 50% stenosis of the ICA origin bilaterally.
I. MRI brain with multiple enhancing lesions in the corpus callosum and paracortical locations, infratentorial lesion in the left shivani and left cerebellum, and chronic right cerebellum lesion. The appearance of these findings are highly suggestive
of a demyelinating process, multiple sclerosis. No spinal lesions demonstrated on MRI spine imaging.
2. MRI lumbar spine suggestive of a right hydrosalpinx and a small complex left ovarian cyst.
Plan
-Reviewed at length with the patient was the likely diagnosis of relapsing remitting multiple sclerosis and provided written materials about multiple sclerosis and all of the treatment options available.
-LP at this wouldn't clearly add assistance for diagnosis.
-Continue Methylprednisolone 1 gm IV x 5 days. (Today is day 2/5).
-Begin vitamin B12 replacement for deficiency, less than 400.
-Begin vitamin D replacement due to deficiency.
-PT/OT evaluations.
-Follow-up regarding abnormal uterine/ovarian findings per primary team.
-DVT prophylaxis.
Will follow.
Subjective/Objective
Subjective Data
Date of Service: December 31, 2023
No acute events overnight. Patient reports that her headache has resolved today but it was severe last night despite Maxalt and the migraine cocktail and she did not get any sleep. Her dizziness feels improved but her gait is still mildly
off-balance. Her vision has been mildly more blurry over the past few weeks. She denies any speech/swallow difficulty, nausea, photo/phonophobia, numbness, weakness, chest pain, palpitations, and shortness of breath.
Objective Data
Vital Signs
Temp Pulse Resp BP Pulse Ox
98.1 F 58 18 133/79 94
12/31/23 03:33 12/31/23 03:33 12/31/23 03:33 12/31/23 03:33 12/31/23 03:33
Lab Results
12/31/23 04:59
12/31/23 04:59
Sodium 137 mmol/L (135-145) 12/31/23 04:59
Potassium 4.5 mmol/L (3.5-5.1) 12/31/23 04:59
BUN 13 mg/dl (7-17) 12/31/23 04:59
Glucose 130 mg/dl (70-99) H 12/31/23 04:59
Calcium 10.2 mg/dl (8.4-10.2) 12/31/23 04:59
Phosphorus 4.5 mg/dl (2.5-4.5) 12/31/23 04:59
LDL Cholesterol, Calc 68 mg/dl 12/29/23 06:08
Vitamin B12 351 pg/ml (239-931) 12/29/23 06:08
Patient Allergies
No Known Allergies Allergy (Verified 12/28/23 18:02)
Review of Systems
-
History Source: Patient
Constitutional: Fatigue
EENT: Blurry Vision; Negative Eye Pain, Decreased Vision or Swallowing Difficulty
Respiratory: Negative Cough or Trouble Breathing
Cardiac: Negative Chest Pain or Palpitations
Abdomen/GI: Negative Nausea
Neuro: Dizzy and Ataxia; Negative Headache, Weakness, Numbness, Tremors or Speech Problem
Physical Exam
-
General: Well Developed, Well Nourished and No Apparent Distress
Eyes: PERRLA; Negative No Ptosis (very slight right eyelid drooping)
HEENT: Normocephalic and Atraumatic
Neck: Full Range of Motion
Respiratory: No Dyspnea
GI: Non-distended
Skin: Other (Left cheek erythema, tongue with white discoloration)
Extremities: No Clubbing, No Cyanosis and No Edema
Psych: Unremarkable
Extended Neurological Exam
Mood & Affect: Mood Unremarkable and Affect Unremarkable
Attention Span & Concentration: Awake, Alert, Interactive and Mild Difficulty with 2 Step Request
Memory: Unremarkable (AAOx3) and Able to Recall
Tremor: Hand Tremor Absent and Head Tremor Absent
Involuntary Movement: None
Speech: Quality Unremarkable, Quantity Unremarkable and Rate of Production Unremarkable
Cranial Nerve II: Left Eye: Pupillary Reactivity Unremarkable, Pupillary Size Unremarkable and Visual Mccann Intact
Cranial Nerve II: Right Eye: Pupillary Reactivity Unremarkable, Pupillary Size Unremarkable and Visual Mccann Intact
Cranial Nerves III, IV, : Extraocular Movement: Ptosis on Right (very slight); Negative Extraocular Movement Full in all Directions (mildly reduced up gaze on the right only)
Cranial Nerve V: Facial Sensation: Intact to Light Touch
Cranial Nerve VII: Facial Symmetry: Normal Facial Symmetry
Cranial Nerve VIII: Hearing: Unremarkable Hearing to Normal Conversational Volume
Cranial Nerves IX, X: Palate Movement: Palate Elevation Symmetric
Cranial Nerve XI: Shoulder Shrug: Unremarkable
Cranial Nerve XII: Tongue Protusion: Midline
Muscle Strength, Overall: Full Throughout
Muscle Bulk & Tone: Bulk Unremarkable and Tone Unremarkable
Pronator Drift: No Drift in Upper Extremities and No Drift in Lower Extremities
Coordination: [id number] Testing Unremarkable
Gait & Station: Romberg Test Positive and Other (veers to the right walking)
Data Reviewed
-
MRI Head: Report Reviewed and Image Reviewed
MRI Cervical Spine: Report Reviewed and Image Reviewed
MRI Thoracic Spine: Report Reviewed and Image Reviewed
MRI Lumbar Spine: Report Reviewed and Image Reviewed
MRA Head: Report Reviewed and Image Reviewed
MRA Neck: Report Reviewed and Image Reviewed
Labs: Report Reviewed
Lipid Profile: Report Reviewed
HgbA1C: Report Reviewed
Reviewed with: Physician and Patient
Medications
-
Active Medications
Generic Name Dose Route Start Last Admin
Trade Name Freq PRN Reason Stop Dose Admin
Amlodipine Besylate 10 mg 12/28/23 22:47 12/30/23 00:30
Amlodipine 10 Mg Tablet PO 01/25/24 22:46 10 mg
DAILY PRN Administration
high BP > 140/90
Aspirin 81 mg 12/29/23 13:00 12/31/23 07:21
Aspirin 81 Mg (Enteric Coated) Tablet PO 01/26/24 12:59 81 mg
DAILY KOLBY Administration
Cholecalciferol 50 mcg 12/30/23 08:00 12/31/23 07:21
Cholecalciferol (Vitamin D3) 50 Mcg Tablet (2,000 Units) PO 01/27/24 07:59 50 mcg
DAILY KOLBY Administration
Cyanocobalamin 1,000 mcg 12/30/23 08:00 12/31/23 07:21
Cyanocobalamin 1,000 Mcg Tablet PO 01/27/24 07:59 1,000 mcg
DAILY KOLBY Administration
Diphenhydramine HCl 12.5 mg 12/28/23 21:58 12/31/23 03:58
Diphenhydramine 50 Mg/Ml 1 Ml Vial IV 01/25/24 21:57 12.5 mg
Q4HPRN PRN Administration
headache
Ergocalciferol 50,000 units 12/30/23 08:00 12/30/23 08:18
Ergocalciferol (Vitamin D-2) 84643 Units Capsule PO 01/27/24 07:59 50,000 units
Q7D KOLBY Administration
Methylprednisolone Sodium 258 mls @ 258 mls/hr 12/30/23 08:00 12/31/23 07:43
Succinate 1,000 mg/ Sodium IV 01/03/24 08:59 258 mls
Chloride Q24H KOLBY Administration
Ketorolac Tromethamine 30 mg 12/28/23 21:58 12/31/23 03:57
Ketorolac 30 Mg/Ml Injection IV 01/02/24 21:57 30 mg
Q6HPRN PRN Administration
migraine
Ondansetron HCl 4 mg 12/30/23 10:24 12/30/23 20:21
Ondansetron 4 Mg/2 Ml Vial IV 01/27/24 10:23 4 mg
Q6HPRN PRN Administration
NAUSEA/VOMITING
Pantoprazole Sodium 40 mg 12/31/23 08:00 12/31/23 07:21
Pantoprazole 40 Mg Delayed Release Tablet PO 01/28/24 07:59 40 mg
DAILY KOLBY Administration
Sodium Chloride 0 flush 12/28/23 23:00 12/28/23 22:35
Sodium Chloride 0.9% (Flush) Syringe IV 01/25/24 22:59 1 flush
PER PROTOCOL KOLBY Administration
Home Medications
�Medication �Instructions �Recorded
amlodipine 10 mg tablet 10 mg PO DAILY PRN high BP 12/28/23
meclizine 25 mg tablet 25 mg PO TID PRN vertigo 12/28/23
methylprednisolone 4 mg tablets in 4 mg PO USEASDIRECTD 12/28/23
a dose pack
--- NOTE | 2023-12-31 09:09 | W.PN.HOSP.TC ---
Today's Communication/Plan
-
see bold
Assessment / Plan
Assessment / Plan
HPI: 43-year-old female complaining of 8 days of vertigo and disequilibrium along with entire head headache including posterior neck pain.� She feels a sense of spinning when her eyes are closed and when she is walking feels pulled to the right
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
this was compared to a prior CT on August 06, 2020 which was the same.� She reports she had a prior lacunar infarct age 37 was seen at [place] [facility]� office she does report she has been getting headaches approximately 15 days out
of month for the past 6 to 7 years but has only seen neurology once.� She is not on any preventative medication.� Was never formally diagnosed with migraines.� She has past medical history of HTN,� obesity.
#Dizziness/vertigo
#MS Flare
MRI brain shows multiple foci increased T2 signal intensity suggestive MS flare 'Burris's fingers'
Abnormal T2 signal intensity Left Temporal Lobe consistent w/ focus active demyelination vs glioma (short term follow up MRI 1-2 months recommended)
L spine MRI neg for enhancement, LP not indicated
Appreciate neurology input, continue methylprednisolone 1 g IV day 11/09
Continue Vit B12 and D repletion
PT rec acute rehab
#Headache
Resolved presently, following once rizatriptan 12/29
#Vitamin D deficiency
cont vitamin D supplementation
#Benign essential hypertension
Continue amlodipine 10 mg daily prn - home regimen
#Leukocytosis
From methylprednisolone use
Obesity due to excess calories
Affects all aspects of care
DVT prophylaxis�SCDs
GI ppx Protonix
Full code
Physical Exam
General: Obese, no acute distress
HEENT: Normocephalic, Atraumatic, EOMI, MMM
Respiratory: Clear to Auscultation bilaterally
Cardiac: Normal S1/S2, Regular Rate and Rhythm
GI: Soft, Nontender, Nondistended, Normal Bowel Sounds
Extremities: No Clubbing, Cyanosis, or Edema
Neuro: Nonfocal/Grossly Intact
Psych: Calm, Cooperative
Derm: No Visible lesions
Anticipated Discharge: > 48 hours
Subjective/Interval History
-
Date of Service: December 31, 2023
Patient reports that her lightheadedness and dizziness have improved. No headache. She feels better overall. No fever. She has felt nauseous, no vomiting.
Objective Data
-
Labs:
Laboratory Results
12/31/23
04:59
WBC 17.3 H
Hgb 12.3
Hct 35.7 L
Plt Count 309
Sodium 137
Potassium 4.5
Chloride 102
Carbon Dioxide 23
BUN 13
Creatinine 0.6
Glucose 130 H
Calcium 10.2
Vital Signs:
Vital Signs
Temp Pulse Resp BP Pulse Ox
97.5 F 75 18 117/82 97
12/31/23 07:00 12/31/23 07:00 12/31/23 07:00 12/31/23 07:00 12/31/23 07:00
I&O
12/30/23 12/31/23 01/01/24
06:59 06:59 06:59
Intake Total 2580 / 2580 2268 / 2268
Balance 2580 / 2580 2268 / 2268
--- NOTE | 2023-12-31 09:49 | CM ---
Ongoing diagnostic testing.
Pt changed to inpatient notified patient.
Patient Has 2 children Bonnie 26 yo with CP and son 19yo [place]. Her parents as support too.
her parents will drive her home.
Offered VN she declined need.
PLAN Home no needs
--- NOTE | 2023-12-31 13:30 | W.PN.HOSP.TC ---
Today's Communication/Plan
-
see bold
Assessment / Plan
Assessment / Plan
HPI: 43-year-old female complaining of 8 days of vertigo and disequilibrium along with entire head headache including posterior neck pain.� She feels a sense of spinning when her eyes are closed and when she is walking feels pulled to the right
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
this was compared to a prior CT on August 06, 2020 which was the same.� She reports she had a prior lacunar infarct age 37 was seen at [place] [facility]� office she does report she has been getting headaches approximately 15 days out
of month for the past 6 to 7 years but has only seen neurology once.� She is not on any preventative medication.� Was never formally diagnosed with migraines.� She has past medical history of HTN,� obesity.
#Dizziness/vertigo
#MS Flare
MRI brain shows multiple foci increased T2 signal intensity suggestive MS flare 'Burris's fingers'
Abnormal T2 signal intensity Left Temporal Lobe consistent w/ focus active demyelination vs glioma (short term follow up MRI 1-2 months recommended)
L spine MRI neg for enhancement, LP not indicated
Appreciate neurology input, continue methylprednisolone 1 g IV day 11/09
F/u lab studies for KATHIE ESR CRP, vitamin D Lyme disease, NMO with aqua porin 4 for as well as MoGad antibodies
Continue Vit B12 and D repletion
PT rec acute rehab
#Headache
Resolved presently, following once rizatriptan 12/29
#Vitamin D deficiency
cont vitamin D supplementation
#Benign essential hypertension
Continue amlodipine 10 mg daily prn - home regimen
#Leukocytosis
From methylprednisolone use
Obesity due to excess calories
Affects all aspects of care
DVT prophylaxis�SCDs
GI ppx Protonix
Full code
Physical Exam
General: Obese, no acute distress
HEENT: Normocephalic, Atraumatic, EOMI, MMM
Respiratory: Clear to Auscultation bilaterally
Cardiac: Normal S1/S2, Regular Rate and Rhythm
GI: Soft, Nontender, Nondistended, Normal Bowel Sounds
Extremities: No Clubbing, Cyanosis, or Edema
Neuro: Nonfocal/Grossly Intact
Psych: Calm, Cooperative
Derm: No Visible lesions
Anticipated Discharge: > 48 hours
Subjective/Interval History
-
Date of Service: December 31, 2023
Objective Data
-
Labs:
Laboratory Results
12/31/23
04:59
WBC 17.3 H
Hgb 12.3
Hct 35.7 L
Plt Count 309
Sodium 137
Potassium 4.5
Chloride 102
Carbon Dioxide 23
BUN 13
Creatinine 0.6
Glucose 130 H
Calcium 10.2
Vital Signs:
Vital Signs
Temp Pulse Resp BP Pulse Ox
97.8 F 70 18 134/86 97
12/31/23 11:00 12/31/23 11:00 12/31/23 11:00 12/31/23 11:00 12/31/23 11:00
I&O
12/30/23 12/31/23 01/01/24
06:59 06:59 06:59
Intake Total 2580 / 2580 2268 / 2268
Balance 2580 / 2580 2268 / 226
[2023-12-31 21:50] LABS: ANA, IgG Reflex to HEp-2 None Detected (None Detected)
[2024-01-01] VITALS (8 sets, daily range): BP systolic 125–159; BP diastolic 75–98; PULSE 65; O2SAT 97
[2024-01-01 06:21] LABS: Hematocrit 34.7 % (37.0-47.0); Hemoglobin 11.8 g/dL (12.0-16.0); Mean Corpuscular Hgb 28.9 pg (27.0-31.0); Mean Corpuscular Volume 84.8 fL (81.0-99.0); Mean Platelet Volume 10.6 fL (7.4-10.4); Platelet Count 315 10^3/uL (130-400); Red Blood Cell Count 4.09 10^6/uL (4.20-5.40); Red Cell Dist. Width 13.2 % (11.5-14.5); White Blood Cell Count 19.8 10^3/uL (4.8-10.8)
[2024-01-01 06:26] LABS: Blood Urea Nitrogen 24 mg/dl (7-17); Carbon Dioxide 24 mmol/L (22-30); Chloride 106 mmol/L (98-107); Estimated Creatinine Clearance 99 ml/min; Glucose 114 mg/dl (70-99); Magnesium 2.2 mg/dl (1.6-2.3); Phosphorus 4.9 mg/dl (2.5-4.5); Potassium 4.5 mmol/L (3.5-5.1); Sodium 135 mmol/L (135-145); eGFR > 60.00
[2024-01-01] MEDS: PROTONIX 40 MG PO (07:47)
[2024-01-01] MEDS: VITAMIN D3 (cholecalciferol) 50 MCG PO (07:47)
[2024-01-01] MEDS: VITAMIN B-12 1000 MCG PO (07:47)
[2024-01-01] MEDS: ASPIR LOW (ENTERIC COATED) 81 MG PO (07:47)
--- NOTE | 2024-01-01 08:12 | W.PN.NEURO.1 ---
Addendum entered and electronically signed by Golden Thompson MD 01/01/24 12:56:
I saw and evaluated the patient I reviewed the note by Dorene Valencia agree with the findings the following comments:
43-year-old woman presented to hospital initially with headache and vertigo and was found to have abnormal brain MRI suggestive of demyelinating disease. Patient reports feeling a lot better today headache is improved she gets minor amount of
diplopia intermittently. Walking is doing very well.
Neurologic examination notable for only extremely mild limitation in right eye upgaze, otherwise unremarkable.
Assessment: Most likely a new diagnosis and flare of multiple sclerosis, responding well to IV steroids.
Recommendations
-Further discussed and educated patient on the disease modifying medications for multiple sclerosis she will continue to further read on these and we aim to have a decision on which medication we will pursue in the outpatient setting by the time she
is discharged
-Continue IV steroids day 3/
-Pending lab studies for NMO and MOGAD which are felt to be less likely
-PT/OT
-Supportive care
Original Note:
Today's Communication / Plan
-
.
Neuro Assessment/Plan
Assessment
This is a 43-year-old female who presented to on 12/28/23 with report of abrupt onset of headache and vertigo starting 8 days earlier, and prior history at age 37 suggestive of abnormal findings by MRI in the right cerebellum chronically. The
patient has been seen by an outside neurology group who did not seem to endorse the diagnosis of stroke.
-MRI of brain performed with and without contrast is suggestive of multiple sclerosis based on lesions in typical locations including corpus callosum and paracortical locations as well as infratentorial lesion in the left shivani and left cerebellum.
The lesion in the right cerebellum is most likely a prior MS lesion now chronic. Additionally, presence of enhancing and nonenhancing lesions is suggestive of a demyelinating process.
-MRI Cervical, Thoracic, and Lumbar Spine 12/30/23: No MRI evidence for abnormal signal or enhancement of the spinal cord in the cervical, thoracic, or lumbar spine. Grade 2 anterolisthesis of L5 on S1. L5 right-sided pars defect, and possible
left-sided pars defect. Partially imaged pelvic findings include suspected right hydrosalpinx and a small complex left ovarian cyst. Pelvic ultrasound could be considered for further evaluation.
-MRA Neck/COW 12/29/23: No acute intracranial abnormality noted. Less than 50% stenosis of the ICA origin bilaterally.
I. MRI brain with multiple enhancing lesions in the corpus callosum and paracortical locations, infratentorial lesion in the left shivani and left cerebellum, and chronic right cerebellum lesion. The appearance of these findings are highly suggestive
of a demyelinating process, multiple sclerosis. No spinal lesions demonstrated on MRI spine imaging.
Plan
-Reviewed at length with the patient was the likely diagnosis of relapsing remitting multiple sclerosis and provided written materials about multiple sclerosis and all of the treatment options available. Encouraged her to make a decision regarding
disease modifying treatment by 01/03/24 so our office can initiate the process with insurance prior to her follow-up outpatient appointment.
-LP at this wouldn't clearly add assistance for diagnosis.
-Continue Methylprednisolone 1 gm IV x 5 days. (Today is day 3/5).
-Begin vitamin B12 replacement for deficiency, less than 400.
-Begin vitamin D replacement due to deficiency.
-Pending lab studies for KATHIE ESR CRP, vitamin D Lyme disease
-Pending lab studies for NMO with aqua porin 4 for as well as Mogad antibodies
-PT/OT evaluations.
-Follow-up regarding abnormal uterine/ovarian findings on MRI lumbar spine per primary team.
-DVT prophylaxis.
-Patient will need outpatient follow-up with Neurology in about 4 weeks, may see the [employer] or one of the physicians.
Will follow.
Subjective/Objective
Subjective Data
Date of Service: January 01, 2024
No acute events overnight. Patient reports feeling much better today, almost completely back to her baseline. Washing/doing her hair triggered transient vertigo and diplopia but it only lasted a few minutes before resolving. She denies any headache,
speech/swallow difficulty, numbness, weakness, nausea, chest pain, palpitations, and shortness of breath.
Objective Data
Vital Signs
Temp Pulse Resp BP Pulse Ox
98 F 65 18 125/85 98
01/01/24 07:00 01/01/24 07:00 01/01/24 07:00 01/01/24 07:00 01/01/24 07:00
Lab Results
01/01/24 04:48
01/01/24 04:48
Sodium 135 mmol/L (135-145) 01/01/24 04:48
Potassium 4.5 mmol/L (3.5-5.1) 01/01/24 04:48
BUN 24 mg/dl (7-17) H 01/01/24 04:48
Glucose 114 mg/dl (70-99) H 01/01/24 04:48
Calcium 10.0 mg/dl (8.4-10.2) 01/01/24 04:48
Phosphorus 4.9 mg/dl (2.5-4.5) H 01/01/24 04:48
LDL Cholesterol, Calc 68 mg/dl 12/29/23 06:08
Vitamin B12 351 pg/ml (239-931) 12/29/23 06:08
Patient Allergies
No Known Allergies Allergy (Verified 12/28/23 18:02)
Review of Systems
-
History Source: Patient
EENT: Negative Blurry Vision, Decreased Vision or Swallowing Difficulty
Respiratory: Negative Cough or Trouble Breathing
Cardiac: Negative Chest Pain or Palpitations
Abdomen/GI: Negative Nausea
Neuro: Dizzy; Negative Headache, Weakness, Numbness, Ataxia or Speech Problem
Physical Exam
-
General: Well Developed, Well Nourished and No Apparent Distress
Eyes: No Ptosis and PERRLA
HEENT: Normocephalic and Atraumatic
Neck: Full Range of Motion
Respiratory: No Dyspnea
GI: Non-distended
Extremities: No Clubbing, No Cyanosis and No Edema
Psych: Unremarkable
Extended Neurological Exam
Mood & Affect: Mood Unremarkable and Affect Unremarkable
Attention Span & Concentration: Awake, Alert, Interactive and No Difficulty with 2 Step Request
Memory: Unremarkable (AAOx3) and Able to Recall
Tremor: Hand Tremor Absent and Head Tremor Absent
Involuntary Movement: None
Speech: Quality Unremarkable, Quantity Unremarkable and Rate of Production Unremarkable
Cranial Nerve II: Left Eye: Pupillary Reactivity Unremarkable, Pupillary Size Unremarkable and Visual Mccann Intact
Cranial Nerve II: Right Eye: Pupillary Reactivity Unremarkable and Visual Mccann Intact
Cranial Nerves III, IV, : Extraocular Movement: Extraocular Movement Full in all Directions
Cranial Nerve V: Facial Sensation: Intact to Light Touch
Cranial Nerve VII: Facial Symmetry: Normal Facial Symmetry
Cranial Nerve VIII: Hearing: Unremarkable Hearing to Normal Conversational Volume
Cranial Nerves IX, X: Palate Movement: Palate Elevation Symmetric
Cranial Nerve XI: Shoulder Shrug: Unremarkable
Cranial Nerve XII: Tongue Protusion: Midline
Muscle Strength, Overall: Full Throughout
Muscle Bulk & Tone: Bulk Unremarkable and Tone Unremarkable
Pronator Drift: No Drift in Upper Extremities and No Drift in Lower Extremities
Coordination: [id number] Testing Unremarkable
Gait & Station: Up from Seated Without Problem
Data Reviewed
-
MRI Head: Report Reviewed and Image Reviewed
MRI Cervical Spine: Report Reviewed and Image Reviewed
MRI Thoracic Spine: Report Reviewed and Image Reviewed
MRI Lumbar Spine: Report Reviewed and Image Reviewed
MRA Head: Report Reviewed and Image Reviewed
MRA Neck: Report Reviewed and Image Reviewed
Labs: Report Reviewed
Reviewed with: Physician and Patient
Medications
-
Active Medications
Generic Name Dose Route Start Last Admin
Trade Name Freq PRN Reason Stop Dose Admin
Amlodipine Besylate 10 mg 12/28/23 22:47 12/30/23 00:30
Amlodipine 10 Mg Tablet PO 01/25/24 22:46 10 mg
DAILY PRN Administration
high BP > 140/90
Aspirin 81 mg 12/29/23 13:00 01/01/24 07:47
Aspirin 81 Mg (Enteric Coated) Tablet PO 01/26/24 12:59 81 mg
DAILY KOLBY Administration
Cholecalciferol 50 mcg 12/30/23 08:00 01/01/24 07:47
Cholecalciferol (Vitamin D3) 50 Mcg Tablet (2,000 Units) PO 01/27/24 07:59 50 mcg
DAILY KOLBY Administration
Cyanocobalamin 1,000 mcg 12/30/23 08:00 01/01/24 07:47
Cyanocobalamin 1,000 Mcg Tablet PO 01/27/24 07:59 1,000 mcg
DAILY KOLBY Administration
Diphenhydramine HCl 12.5 mg 12/28/23 21:58 12/31/23 21:08
Diphenhydramine 50 Mg/Ml 1 Ml Vial IV 01/25/24 21:57 12.5 mg
Q4HPRN PRN Administration
headache
Ergocalciferol 50,000 units 12/30/23 08:00 12/30/23 08:18
Ergocalciferol (Vitamin D-2) 02555 Units Capsule PO 01/27/24 07:59 50,000 units
Q7D KOLBY Administration
Methylprednisolone Sodium 258 mls @ 258 mls/hr 12/30/23 08:00 01/01/24 08:19
Succinate 1,000 mg/ Sodium IV 01/03/24 08:59 258 mls
Chloride Q24H KOLBY Administration
Ketorolac Tromethamine 30 mg 12/28/23 21:58 12/31/23 21:09
Ketorolac 30 Mg/Ml Injection IV 01/02/24 21:57 30 mg
Q6HPRN PRN Administration
migraine
Ondansetron HCl 4 mg 12/30/23 10:24 12/30/23 20:21
Ondansetron 4 Mg/2 Ml Vial IV 01/27/24 10:23 4 mg
Q6HPRN PRN Administration
NAUSEA/VOMITING
Pantoprazole Sodium 40 mg 12/31/23 08:00 01/01/24 07:47
Pantoprazole 40 Mg Delayed Release Tablet PO 01/28/24 07:59 40 mg
DAILY KOLBY Administration
Sodium Chloride 0 flush 12/28/23 23:00 12/28/23 22:35
Sodium Chloride 0.9% (Flush) Syringe IV 01/25/24 22:59 1 flush
PER PROTOCOL KOLBY Administration
Home Medications
�Medication �Instructions �Recorded
amlodipine 10 mg tablet 10 mg PO DAILY PRN high BP 12/28/23
meclizine 25 mg tablet 25 mg PO TID PRN vertigo 12/28/23
methylprednisolone 4 mg tablets in 4 mg PO USEASDIRECTD 12/28/23
a dose pack
[2024-01-01] MEDS: SOLU-MEDROL 258 MG IV (08:19)
--- NOTE | 2024-01-01 08:59 | W.PN.HOSP.TC ---
Today's Communication/Plan
-
Continue IV steroids
Assessment / Plan
Assessment / Plan
HPI: 43-year-old female complaining of 8 days of vertigo and disequilibrium along with entire head headache including posterior neck pain.� She feels a sense of spinning when her eyes are closed and when she is walking feels pulled to the right
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
this was compared to a prior CT on August 06, 2020 which was the same.� She reports she had a prior lacunar infarct age 37 was seen at [place] [facility]� office she does report she has been getting headaches approximately 15 days out
of month for the past 6 to 7 years but has only seen neurology once.� She is not on any preventative medication.� Was never formally diagnosed with migraines.� She has past medical history of HTN,� obesity.
#Dizziness/vertigo
#MS Flare
MRI brain shows multiple foci increased T2 signal intensity suggestive MS flare 'Burris's fingers'
Abnormal T2 signal intensity Left Temporal Lobe consistent w/ focus active demyelination vs glioma (short term follow up MRI 1-2 months recommended)
L spine MRI neg for enhancement, LP not indicated
Appreciate neurology input, continue methylprednisolone 1 g IV day 12/07
F/u lab studies for KATHIE ESR CRP, vitamin D Lyme disease, NMO with aqua porin 4 for as well as MoGad antibodies
Continue Vit B12 and D repletion
PT rec outpt PT, plan for discharge on Thursday after her fifth dose of IV steroids
#Headache
Resolved presently, s/p rizatriptan
#Vitamin D deficiency
Cont vitamin D supplementation
#History of type 2 diabetes, now glucose intolerance
Hemoglobin A1c 5.8
Continue carb controlled diet
#Benign essential hypertension
Continue amlodipine 10 mg daily prn - home regimen
#Leukocytosis
From methylprednisolone use
Obesity due to excess calories
Affects all aspects of care
DVT prophylaxis�SCDs
GI ppx Protonix
Full code
Total time spent to see the patient on the floor, examine the patient, review data and lab results, discuss treatment plan with patient, nursing staff around 35 minutes.
Physical Exam
General: Obese, no acute distress
HEENT: Normocephalic, Atraumatic, EOMI, MMM
Respiratory: Clear to Auscultation bilaterally
Cardiac: Normal S1/S2, Regular Rate and Rhythm
GI: Soft, Nontender, Nondistended, Normal Bowel Sounds
Extremities: No Clubbing, Cyanosis, or Edema
Neuro: Nonfocal/Grossly Intact
Psych: Calm, Cooperative
Derm: No Visible lesions
Anticipated Discharge: 24 - 48 hours
Subjective/Interval History
-
Date of Service: January 01, 2024
Dizziness and vertigo continues to improve, is now mild. Had some nausea with her vertigo, no vomiting. No fever.
Objective Data
-
Labs:
Laboratory Results
01/01/24
04:48
WBC 19.8 H
Hgb 11.8 L
Hct 34.7 L
Plt Count 315
Sodium 135
Potassium 4.5
Chloride 106
Carbon Dioxide 24
BUN 24 H
Creatinine 0.8
Glucose 114 H
Calcium 10.0
Vital Signs:
Vital Signs
Temp Pulse Resp BP Pulse Ox
98 F 65 18 125/85 98
01/01/24 07:00 01/01/24 07:00 01/01/24 07:00 01/01/24 07:00 01/01/24 07:00
I&O
12/31/23 01/01/24 01/02/24
06:59 06:59 06:59
Intake Total 2268 / 2268 1158 / 1158
Balance 22671 / 9931
[2024-01-01] MEDS: MIRALAX 17 GRAMS PO (14:11)
[2024-01-01] MEDS: COLACE 100 MG PO (15:21)
[2024-01-01] MEDS: NORVASC 10 MG PO (16:00)
--- NOTE | 2024-01-01 16:08 | CM ---
Spoke with pt in room she said she is being started on MS medicines.
Her family will be able to drive her home at dc.
Offered VN she declined need.
PLAN Home no need
[2024-01-01 18:48] LABS: Lyme Ab Western Blot IgG Negative (Negative); Lyme Ab Western Blot IgM Negative (Negative)
[2024-01-02] VITALS (7 sets, daily range): BP systolic 126–158; BP diastolic 87–102
[2024-01-02 01:09] LABS: T. pallidum Ab By TP-PA Non Reactive (Non Reactive)
[2024-01-02] MEDS: BENADRYL 12.5 MG IV (01:54)
--- NOTE | 2024-01-02 07:09 | W.PN.NEURO.1 ---
Today's Communication / Plan
-
-Continue IV steroids day 4/5
-Monitor for hyperglycemia, goal normotension
-Discussed medications, she is favoring Kesimpta/Ofatumomab
---Draw HBV, HCV, TB quantiferon, quantitative immunoglobulins, VZV antibody and HIV
-Anticipate discharge home tomorrow
Will follow
Neuro Assessment/Plan
Assessment
This is a 43-year-old female who presented to on 12/28/23 with report of abrupt onset of headache and vertigo starting 8 days earlier, and prior history at age 37 suggestive of abnormal findings by MRI in the right cerebellum chronically. The
patient has been seen by an outside neurology group who did not seem to endorse the diagnosis of stroke.
-MRI of brain performed with and without contrast is suggestive of multiple sclerosis based on lesions in typical locations including corpus callosum and paracortical locations as well as infratentorial lesion in the left shivani and left cerebellum.
The lesion in the right cerebellum is most likely a prior MS lesion now chronic. Additionally, presence of enhancing and nonenhancing lesions is suggestive of a demyelinating process.
-MRI Cervical, Thoracic, and Lumbar Spine 12/30/23: No MRI evidence for abnormal signal or enhancement of the spinal cord in the cervical, thoracic, or lumbar spine. Grade 2 anterolisthesis of L5 on S1. L5 right-sided pars defect, and possible
left-sided pars defect. Partially imaged pelvic findings include suspected right hydrosalpinx and a small complex left ovarian cyst. Pelvic ultrasound could be considered for further evaluation.
-MRA Neck/COW 12/29/23: No acute intracranial abnormality noted. Less than 50% stenosis of the ICA origin bilaterally.
I. MRI brain with multiple enhancing lesions in the corpus callosum and paracortical locations, infratentorial lesion in the left shivani and left cerebellum, and chronic right cerebellum lesion. The appearance of these findings are highly suggestive
of a demyelinating process, No spinal lesions demonstrated on MRI spine imaging.
Multiple sclerosis is most likely diagnosis, new diagnosis
Subjective/Objective
Subjective Data
Date of Service: January 02, 2024
No acute events, discussed medications, tolerating steroids okay, some difficulty sleeping, processing a lot of information, walking feels much better
Objective Data
Vital Signs
Temp Pulse Resp BP Pulse Ox
98.6 F 55 18 157/94 95
01/02/24 03:17 01/02/24 03:17 01/02/24 03:17 01/02/24 03:17 01/02/24 03:17
Lab Results
01/01/24 04:48
01/01/24 04:48
Sodium 135 mmol/L (135-145) 01/01/24 04:48
Potassium 4.5 mmol/L (3.5-5.1) 01/01/24 04:48
BUN 24 mg/dl (7-17) H 01/01/24 04:48
Glucose 114 mg/dl (70-99) H 01/01/24 04:48
Calcium 10.0 mg/dl (8.4-10.2) 01/01/24 04:48
Phosphorus 4.9 mg/dl (2.5-4.5) H 01/01/24 04:48
LDL Cholesterol, Calc 68 mg/dl 12/29/23 06:08
Vitamin B12 351 pg/ml (239-931) 12/29/23 06:08
Patient Allergies
No Known Allergies Allergy (Verified 12/28/23 18:02)
Review of Systems
-
History Source: Patient
All other systems: Reviewed and negative
Constitutional: No Symptoms
EENT: No Symptoms Reported
Respiratory: No Symptoms
Cardiac: No Symptoms
Abdomen/GI: No Symptoms
Genitourinary: No Symptoms
Musculoskeletal: No Symptoms
Skin: No Symptoms
Neuro: See existing Neuro Note
Endocrine: No Symptoms
Hematologic / Lymphatic: No Symptoms
Allergy / Immunology: No Symptoms
Physical Exam
-
General: Comfortable
Eyes: No Ptosis
HEENT: Normocephalic
Neck: No Bruits Bilaterally
Respiratory: Clear to Auscultation
Cardiac: Regular Rhythm
GI: Normal Bowel Sounds
Skin: Unremarkable
Extremities: No Clubbing
Psych: Intact Judgement/Insight; Negative Confused
Extended Neurological Exam
Mood & Affect: Mood Unremarkable and Affect Unremarkable
Attention Span & Concentration: Awake, Alert and Interactive
Memory: Unremarkable
Tremor: Hand Tremor Absent
Involuntary Movement: None
Speech: Quality Unremarkable and Quantity Unremarkable; Negative Expressive Aphasia, Receptive Aphasia or Dysarthric
Cranial Nerve II: Left Eye: Pupillary Reactivity Unremarkable, Pupillary Size Unremarkable and Visual Mccann Intact
Cranial Nerve II: Right Eye: Pupillary Reactivity Unremarkable, Pupillary Size Unremarkable and Visual Mccann Intact
Cranial Nerves III, IV, : Extraocular Movement: Extraocular Movement Full in all Directions and Other (Right eye ptosis)
Cranial Nerve VII: Facial Symmetry: Normal Facial Symmetry
Cranial Nerve VIII: Hearing: Unremarkable Hearing to Normal Conversational Volume
Cranial Nerves IX, X: Palate Movement: Palate Elevation Symmetric
Cranial Nerve XI: Shoulder Shrug: Unremarkable
Cranial Nerve XII: Tongue Protusion: Midline
Muscle Strength, Overall: Full Throughout
Muscle Bulk & Tone: Bulk Unremarkable
Pronator Drift: No Drift in Upper Extremities
Deep Tendon Reflexes: Trace Throughout
Vibration Sensation: Unremarkable
Touch Sensation: Unremarkable
Babinski Sign: Absent Bilaterally
Gait & Station: Unremarkable Arm Swing and Up from Seated Without Problem
Data Reviewed
-
MRI Head: Report Reviewed and Image Reviewed
MRI Cervical Spine: Report Reviewed and Image Reviewed
MRI Thoracic Spine: Report Reviewed and Image Reviewed
Labs: Report Reviewed
--- NOTE | 2024-01-02 07:44 | W.PN.HOSP.TC ---
Today's Communication/Plan
-
see bold
Assessment / Plan
Assessment / Plan
HPI: 43-year-old female complaining of 8 days of vertigo and disequilibrium along with entire head headache including posterior neck pain.� She feels a sense of spinning when her eyes are closed and when she is walking feels pulled to the right
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
this was compared to a prior CT on August 06, 2020 which was the same.� She reports she had a prior lacunar infarct age 37 was seen at [place] [facility]� office she does report she has been getting headaches approximately 15 days out
of month for the past 6 to 7 years but has only seen neurology once.� She is not on any preventative medication.� Was never formally diagnosed with migraines.� She has past medical history of HTN,� obesity.
#Dizziness/vertigo
#MS Flare
MRI brain shows multiple foci increased T2 signal intensity suggestive MS flare 'Burris's fingers'
Abnormal T2 signal intensity Left Temporal Lobe consistent w/ focus active demyelination vs glioma (short term follow up MRI 1-2 months recommended)
L spine MRI neg for enhancement, LP not indicated
Appreciate neurology input, continue methylprednisolone 1 g IV day 4/5
F/u lab studies for KATHIE ESR CRP, vitamin D Lyme disease, NMO with aqua porin 4 for as well as MoGad antibodies
Continue Vit B12 and D repletion
PT rec outpt PT, plan for discharge on Thursday after her fifth dose of IV steroids
#Headache
Resolved presently, s/p rizatriptan
#Vitamin D deficiency
Cont vitamin D supplementation
#History of type 2 diabetes, now glucose intolerance
Hemoglobin A1c 5.8
Continue carb controlled diet
#Benign essential hypertension
Continue amlodipine 10 mg daily prn - home regimen
#Leukocytosis
From methylprednisolone use
Obesity due to excess calories
Affects all aspects of care
DVT prophylaxis�SCDs
GI ppx Protonix
Full code
Total time spent to see the patient on the floor, examine the patient, review data and lab results, discuss treatment plan with patient, nursing staff around 35 minutes.
Physical Exam
General: Obese, no acute distress
HEENT: Normocephalic, Atraumatic, EOMI, MMM
Respiratory: Clear to Auscultation bilaterally
Cardiac: Normal S1/S2, Regular Rate and Rhythm
GI: Soft, Nontender, Nondistended, Normal Bowel Sounds
Extremities: No Clubbing, Cyanosis, or Edema
Neuro: Nonfocal/Grossly Intact
Psych: Calm, Cooperative
Derm: No Visible lesions
Anticipated Discharge: Within 24 hours
Subjective/Interval History
-
Date of Service: January 02, 2024
Patient continues to feel better. She only has lightheadedness and dizziness when doing her hair, transient and resolves. Associated with that is nausea, also transient and resolved. No fever, no vomiting.
Objective Data
-
Vital Signs:
Vital Signs
Temp Pulse Resp BP Pulse Ox
98.6 F 55 18 157/94 95
01/02/24 03:17 01/02/24 03:17 01/02/24 03:17 01/02/24 03:17 01/02/24 03:17
I&O
01/01/24 01/02/24 01/03/24
06:59 06:59 06:59
Intake Total 1158 / 1158 1380 / 1380
Balance 1158 / 1158 1380 / 1380
[2024-01-02] MEDS: PROTONIX 40 MG PO (07:57)
[2024-01-02] MEDS: ASPIR LOW (ENTERIC COATED) 81 MG PO (07:57)
[2024-01-02] MEDS: VITAMIN D3 (cholecalciferol) 50 MCG PO (07:57)
[2024-01-02] MEDS: VITAMIN B-12 1000 MCG PO (07:58)
[2024-01-02] MEDS: SOLU-MEDROL 258 MG IV (07:58)
[2024-01-02] MEDS: NORVASC 10 MG PO (07:58)
[2024-01-02] MEDS: MIRALAX 17 GRAMS PO (09:21)
[2024-01-02] MEDS: COLACE 100 MG PO ×2 (09:21→20:43)
[2024-01-02] MEDS: CITROMA 300 ML PO (13:54)
[2024-01-02] MEDS: TORADOL 30 MG IV (13:56)
[2024-01-02] MEDS: MIRALAX PO (20:43)
[2024-01-03] MEDS: BENADRYL 12.5 MG IV (00:22)
[2024-01-03 03:02] VITALS: BP 156/83
[2024-01-03 07:08] VITALS: BP 149/59
[2024-01-03] MEDS: NORVASC 10 MG PO (07:50)
[2024-01-03] MEDS: ASPIR LOW (ENTERIC COATED) 81 MG PO (07:50)
[2024-01-03] MEDS: VITAMIN D3 (cholecalciferol) 50 MCG PO (07:50)
[2024-01-03] MEDS: MIRALAX 17 GRAMS PO (07:50)
[2024-01-03] MEDS: PROTONIX 40 MG PO (07:50)
[2024-01-03] MEDS: SOLU-MEDROL 258 MG IV (07:51)
[2024-01-03] MEDS: COLACE 100 MG PO (07:51)
[2024-01-03] MEDS: VITAMIN B-12 1000 MCG PO (07:51)
--- NOTE | 2024-01-03 07:54 | W.PN.HOSP.TC ---
Today's Communication/Plan
-
Discharge after 5th dose of IV steroids today
Assessment / Plan
Assessment / Plan
HPI: 43-year-old female complaining of 8 days of vertigo and disequilibrium along with entire head headache including posterior neck pain.� She feels a sense of spinning when her eyes are closed and when she is walking feels pulled to the right
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
this was compared to a prior CT on August 06, 2020 which was the same.� She reports she had a prior lacunar infarct age 37 was seen at [facility]� office she does report she has been getting headaches approximately 15 days out
of month for the past 6 to 7 years but has only seen neurology once.� She is not on any preventative medication.� Was never formally diagnosed with migraines.� She has past medical history of HTN,� obesity.
#Dizziness/vertigo
#MS Flare
MRI brain shows multiple foci increased T2 signal intensity suggestive MS flare 'Burris's fingers'
Abnormal T2 signal intensity Left Temporal Lobe consistent w/ focus active demyelination vs glioma (short term follow up MRI 1-2 months recommended)
L spine MRI neg for enhancement, LP not indicated
Appreciate neurology input, continue methylprednisolone 1 g IV day 02/06
Continue Vit B12 and D repletion
PT rec outpt PT, plan for discharge today after her fifth dose of IV steroids
Follow-up with neurology in the office for Kesimpta/Ofatumomab
#Headache
Resolved presently, s/p rizatriptan
#Vitamin D deficiency
Cont vitamin D supplementation
#History of type 2 diabetes, now glucose intolerance
Hemoglobin A1c 5.8
Continue carb controlled diet
#Benign essential hypertension
Continue amlodipine 10 mg daily prn - home regimen
#Leukocytosis
From methylprednisolone use
Obesity due to excess calories
Affects all aspects of care
DVT prophylaxis�SCDs
GI ppx Protonix
Full code
Physical Exam
General: Obese, no acute distress
HEENT: Normocephalic, Atraumatic, EOMI, MMM
Respiratory: Clear to Auscultation bilaterally
Cardiac: Normal S1/S2, Regular Rate and Rhythm
GI: Soft, Nontender, Nondistended, Normal Bowel Sounds
Extremities: No Clubbing, Cyanosis, or Edema
Neuro: Nonfocal/Grossly Intact
Psych: Calm, Cooperative
Derm: No Visible lesions
Anticipated Discharge: Today
Subjective/Interval History
-
Date of Service: January 03, 2024
Minimal vertigo/LH/nausea, transient and improved. +BM. No fever, no vomiting.
Objective Data
-
Vital Signs:
Vital Signs
Temp Pulse Resp BP Pulse Ox
98 F 49 17 156/83 95
01/03/24 03:02 01/03/24 03:02 01/03/24 03:02 01/03/24 03:02 01/03/24 03:02
I&O
01/02/24 01/03/24 01/04/24
06:59 06:59 06:59
Intake Total 1380 / 1380 3240 / 3240
Balance 1380 / 1380 3240 / 3240
--- NOTE | 2024-01-03 07:55 | W.PN.NEURO.1 ---
Today's Communication / Plan
-
Finish 5/5 days of steroids today
Plan for starting Ofatumomab/Kesimpta as outpatient, bernardo appropriate labs here in the hospita
Okay for discharge home
Follow up neurology 4-6 weeks
Neuro Assessment/Plan
Assessment
This is a 43-year-old female who presented to on 12/28/23 with report of abrupt onset of headache and vertigo starting 8 days earlier, and prior history at age 37 suggestive of abnormal findings by MRI in the right cerebellum chronically. The
patient has been seen by an outside neurology group who did not seem to endorse the diagnosis of stroke.
-MRI of brain performed with and without contrast is suggestive of multiple sclerosis based on lesions in typical locations including corpus callosum and paracortical locations as well as infratentorial lesion in the left shivani and left cerebellum.
The lesion in the right cerebellum is most likely a prior MS lesion now chronic. Additionally, presence of enhancing and nonenhancing lesions is suggestive of a demyelinating process.
-MRI Cervical, Thoracic, and Lumbar Spine 12/30/23: No MRI evidence for abnormal signal or enhancement of the spinal cord in the cervical, thoracic, or lumbar spine. Grade 2 anterolisthesis of L5 on S1. L5 right-sided pars defect, and possible
left-sided pars defect. Partially imaged pelvic findings include suspected right hydrosalpinx and a small complex left ovarian cyst. Pelvic ultrasound could be considered for further evaluation.
-MRA Neck/COW 12/29/23: No acute intracranial abnormality noted. Less than 50% stenosis of the ICA origin bilaterally.
I. MRI brain with multiple enhancing lesions in the corpus callosum and paracortical locations, infratentorial lesion in the left shivani and left cerebellum, and chronic right cerebellum lesion. The appearance of these findings are highly suggestive
of a demyelinating process, No spinal lesions demonstrated on MRI spine imaging.
Multiple sclerosis is most likely diagnosis, new diagnosis
Plan
-Reviewed at length with the patient was the likely diagnosis of relapsing remitting multiple sclerosis and provided written materials about multiple sclerosis and all of the treatment options available. Encouraged her to make a decision regarding
disease modifying treatment by 01/03/24 so our office can initiate the process with insurance prior to her follow-up outpatient appointment.
-LP at this wouldn't clearly add assistance for diagnosis.
-Continue Methylprednisolone 1 gm IV x 5 days. (Today is day 12/07).
-Begin vitamin B12 replacement for deficiency, less than 400.
-Begin vitamin D replacement due to deficiency.
-Pending lab studies for KATHIE ESR CRP, vitamin D Lyme disease
-Pending lab studies for NMO with aqua porin 4 for as well as Mogad antibodies
-PT/OT evaluations.
-Follow-up regarding abnormal uterine/ovarian findings on MRI lumbar spine per primary team.
-DVT prophylaxis.
-Patient will need outpatient follow-up with Neurology in about 4 weeks, may see the BIODIESEL PRODUCTION TECHNICIAN or one of the physicians.
Will follow.
Subjective/Objective
Subjective Data
Date of Service: January 03, 2024
No acute events overnight, feeling pretty good
Objective Data
Vital Signs
Temp Pulse Resp BP Pulse Ox
98 F 49 17 156/83 95
01/03/24 03:02 01/03/24 03:02 01/03/24 03:02 01/03/24 03:02 01/03/24 03:02
Lab Results
01/01/24 04:48
01/01/24 04:48
Sodium 135 mmol/L (135-145) 01/01/24 04:48
Potassium 4.5 mmol/L (3.5-5.1) 01/01/24 04:48
BUN 24 mg/dl (7-17) H 01/01/24 04:48
Glucose 114 mg/dl (70-99) H 01/01/24 04:48
Calcium 10.0 mg/dl (8.4-10.2) 01/01/24 04:48
Phosphorus 4.9 mg/dl (2.5-4.5) H 01/01/24 04:48
LDL Cholesterol, Calc 68 mg/dl 12/29/23 06:08
Vitamin B12 351 pg/ml (852-581) 12/29/23 06:08
Patient Allergies
No Known Allergies Allergy (Verified 12/28/23 18:02)
Review of Systems
-
History Source: Patient
All other systems: Reviewed and negative
Constitutional: No Symptoms
EENT: No Symptoms Reported
Respiratory: No Symptoms
Cardiac: No Symptoms
Abdomen/GI: No Symptoms
Genitourinary: No Symptoms
Musculoskeletal: No Symptoms
Skin: No Symptoms
Neuro: See existing Neuro Note
Endocrine: No Symptoms
Hematologic / Lymphatic: No Symptoms
Allergy / Immunology: No Symptoms
Physical Exam
-
General: Comfortable
Eyes: No Ptosis
HEENT: Normocephalic
Neck: No Bruits Bilaterally
Respiratory: Clear to Auscultation
Cardiac: Regular Rhythm
GI: Normal Bowel Sounds
Skin: Unremarkable
Extremities: No Clubbing
Psych: Unremarkable
Extended Neurological Exam
Mood & Affect: Mood Unremarkable and Affect Unremarkable
Attention Span & Concentration: Awake, Alert and Interactive
Memory: Unremarkable
Tremor: Hand Tremor Absent
Involuntary Movement: None
Speech: Quality Unremarkable and Quantity Unremarkable; Negative Expressive Aphasia, Receptive Aphasia or Dysarthric
Cranial Nerve II: Left Eye: Pupillary Reactivity Unremarkable and Pupillary Size Unremarkable
Cranial Nerve II: Right Eye: Pupillary Reactivity Unremarkable and Pupillary Size Unremarkable
Cranial Nerves III, IV, : Extraocular Movement: Extraocular Movement Full in all Directions
Cranial Nerve V: Facial Sensation: Intact to Light Touch
Cranial Nerve VII: Facial Symmetry: Normal Facial Symmetry
Cranial Nerve VIII: Hearing: Unremarkable Hearing to Normal Conversational Volume
Cranial Nerve XII: Tongue Protusion: Midline
Muscle Strength, Overall: Full Throughout
Muscle Bulk & Tone: Bulk Unremarkable
Pronator Drift: No Drift in Upper Extremities
Deep Tendon Reflexes: Trace Throughout
Vibration Sensation: Unremarkable
Touch Sensation: Unremarkable
Coordination: [id number] Testing Unremarkable
Babinski Sign: Absent Bilaterally
Data Reviewed
-
MRI Head: Report Reviewed and Image Reviewed
MRI Cervical Spine: Report Reviewed and Image Reviewed
MRI Thoracic Spine: Report Reviewed and Image Reviewed
Labs: Report Reviewed
--- NOTE | 2024-01-03 10:56 | W.DCSUMMARY ---
Discharge Summary
Discharge Data
Date of Admission: 12/30/23
Date of Discharge: 01/03/24
-
Pending Results: No
Hospital Course
Discharge diagnosis:
New diagnosis of multiple sclerosis
Dizziness/vertigo
Nausea
Headache
Vitamin D deficiency
History of type 2 diabetes, now glucose intolerance with a hemoglobin A1c of 5.8
Labile hypertension
Leukocytosis
Obesity due to excess calories
Consults: Neurology
Brain MRI:
By report there are old lacunar infarcts in the right cerebellum, these are noted on the current exam.
There are multiple foci of increased T2 signal intensity in the deep white matter, some of which have imaging characteristics with the appearance of multiple sclerosis adjacent to the lateral ventricles, with 'Burris's fingers' appearance, others
are indeterminate.
There is a focus of abnormal increased T2 signal intensity in the left temporal lobe, which does enhance and is most consistent with a focus of active demyelination, Given the clinical history.
However, the differential includes possibility of an enhancing neoplasm. A glioma could have this appearance. There is mild adjacent increased T2 signal intensity on the FLAIR images. This area and finding are indeterminate.
Short-term follow-up contrast-enhanced MRI is recommended in 1-2 months to evaluate for resolution or stability.
Hospital course:
43-year-old right handed female with a past medical history of HTN, headaches, stroke and obesity who presented to the ER complaining of 8 days of vertigo and disequilibrium along with entire head headache including posterior neck pain.� Patient was
seen in conjunction with neurology. Brain MRI shows multiple foci of increased T2 signal density, with characteristics of multiple sclerosis. She was found to have new onset of multiple sclerosis. She was treated with 5 days of IV
methylprednisolone.
Patient's vertigo improved. She was seen in conjunction with PT, who recommends outpatient PT.
Patient also has vitamin D deficiency, she received vitamin D supplementation. She was also started on vitamin B supplementation.
She has a history of type 2 diabetes, her current hemoglobin A1c is 5.8. She is now glucose intolerant. She is to continue a low carbohydrate diet.
Patient is medically stable for discharge. She needs to follow-up with neurology in the office for consideration of starting Kesimpta/Ofatumomab.
Disposition: Home self-care
Discharge planning: Required 33
Discharge Plan
-
Patient Disposition: Home (Routine Discharge)
Discharge Diagnosis/Procedures: New diagnosis of multiple sclerosis, headache, vertigo/dizziness, vitamin D deficiency, vitamin B12 deficiency
Condition: Good
Diet: Diabetic, Carb Controlled
Activity: As tolerated
Driving Restrictions: As prior to admission
Other Services: PT
Activity Restrictions/Additional Instructions:
Please continue outpatient physical therapy. Prescription has been provided.
Follow-up with your primary care doctor in 1 week, and neurology in the office in 2-3 weeks.
Referrals:
Golden Thompson MD [Active] - in two to three weeks
Danny Reich DO [Family Provider] - in one week
Prescriptions:
New
cyanocobalamin (vitamin B-12) 1,000 mcg Tablet
1,000 mcg PO DAILY Qty: 30 0RF
ergocalciferol (vitamin D2) 1,250 mcg (50,000 unit) Capsule
1,250 mcg PO Q7D 90 Days Qty: 13 0RF
cholecalciferol (vitamin D3) 50 mcg (2,000 unit) Tablet
50 mcg PO DAILY Qty: 30 0RF
polyethylene glycol 3350 17 gram/dose powder
17 g PO DAILY Qty: 510 0RF
Continued
meclizine 25 mg tablet
25 mg PO TID PRN (Reason: vertigo)
amlodipine 10 mg tablet
10 mg PO DAILY PRN (Reason: high BP)
Patient Comments:
12/28/2023: Pt states she will take if her blood pressure is 140/90 or above. But hasn't taken lately due to BP being lower
Discontinued
methylprednisolone 4 mg tablets,dose pack
4 mg PO USEASDIRECTD
Patient Comments:
12/28/2023: Pt is on day 3 of her taper directions
Discharge Orders:
Discharge Patient (As Directed); Ordered 01/03/24
Ordered By: Oswald Ibarra
Discharge Date and Time
Discharge Date/Time: 01/03/24 11:14
Print Language: ARMENIAN
[2024-01-03 11:08] VITALS: BP 140/90
--- NOTE | 2024-01-03 11:20 | CM ---
Patient left hospital before Historiography Professor was able to see her
Per chart, patient declined home health services and had no DC needs
[2024-01-03 23:56] LABS: IgA 308 mg/dl (70-400); IgG 1188 mg/dl (700-1600); IgM 48 mg/dl (40-230)
[2024-01-05 07:01] LABS: Hepatitis B Surface Antigen Negative (Negative)
[2024-01-05 07:19] LABS: Hepatitis B Core Ab, Total Negative (Negative); Hepatitis B Surface Antibody Negative; Hepatitis C Antibody Negative (Negative)
[2024-01-05 15:28] LABS: HIV Combo Negative (Negative)
[2024-01-06 03:14] LABS: Quantiferon Mitogen minus NIL 9.08 IU/mL; Quantiferon NIL 0.02 IU/mL; Quantiferon TB Gold Plus Negative (Negative)
[2024-01-07 15:55] LABS: Varicella Zoster IgG (VZV) Positive
== END 2024-01-03 11:14 | disposition home or self-care (01) | DRG 60 ==
LOC: 4 EAST ACU 14:33
PROVIDERS: Clinical Nurse Specialist Family Health; Emergency Medicine; Internal Medicine; Student in an Organized Health Care Education/Training Program; ADMITTING PHYSICIAN Hospitalist; ATTENDING PHYSICIAN Family Medicine; CONSULT PHYSICIAN Psychiatry & Neurology Neurology; EMERGENCY PHYSICIAN Emergency Medicine; FAMILY PHYSICIAN Family Medicine
DX: G35 Multiple sclerosis (principal); Z86.73 Personal history of transient ischemic attack (TIA), and cerebral infarction without residual deficits; R27.0 Ataxia, unspecified; I10 Essential (primary) hypertension; Z68.37 Body mass index [BMI] 37.0-37.9, adult; E66.09 Other obesity due to excess calories; E55.9 Vitamin D deficiency, unspecified; G93.2 Benign intracranial hypertension; G43.809 Other migraine, not intractable, without status migrainosus; E53.8 Deficiency of other specified B group vitamins
CPT/HCPCS: 70544; 70548; 70553; 72156; 72157; 72158; 80048; 80053; 80061; 82306; 82607; 82728; 82746; 82784; 83036; 83735; 84100; 84439; 84443; 85025; 85027; 85652; 86038; 86140; 86480; 86617; 86704; 86706; 86780; 86787; 86803; 87340; 87389; 93005; 97116; 97163; 97165; 97168; 99285; A9575; A9585; J1240

== ENCOUNTER 2024-09-16 13:32 | Emergency (ER) | payer BC, SELFPAY ==
[2024-09-16 13:36] VITALS: BP 155/111
--- NOTE | 2024-09-16 13:37 | ED.GENMED ---
ED Provider Triage
<Kristi Reynolds PA-C - Last Filed: 09/16/24 18:39>
-
Patient seen by provider in Triage?: Seen in Triage
Attestation: A medical screening examination has been initiated by a qualified medical provider. Based on the assessment performed at this time, it has been determined that an emergent medical condition may exist and the patient has been informed
that further medical evaluation and possible additional diagnostic testing may be needed.
HPI: 44yoF here with L sided intermittent chest pain x 3 days. Will wake her up from sleep at times. Feels like a tight pressure, intermittently becomes sharp. [facility] saw some small changes on her
EKG. Stress test about 1.5 months ago.
GENERAL: Alert , in no apparent distress
EYE: No visual abnormalities.
NECK: Trachea midline
ENT: No visible abnormalities.
LUNGS: No acute respiratory distress
NEUROLOGICAL: Alert and oriented
SKIN: Skin intact. No visible changes.
MUSCULOSKELETAL: Moving extremities normally
PSYCH: Normal and appropriate interaction.
This is a medical evaluation conducted in person to initiate diagnostic evaluation and provide initial therapeutics. Please see further documentation by the treating clinician.
Cardiac labs, EKG, and CXR ordered.
History of Present Illness
<Kristi Reynolds PA-C - Last Filed: 09/16/24 18:39>
General
Chief Complaint: Chest Pain
Time Seen by Provider: 09/16/24 16:02
<Maranda Alva NP - Last Filed: 09/16/24 18:29>
General
Source: patient
Exam Limitations: none
Nursing documentation reviewed up to this point in time: agreed with
History of Present Illness
History of Present Illness:
Patient to ED with complaint of left sided chest pain x 3 days. States initially her symptoms were intermittent but since yesterday afternoon it has become constant. Reports heaviness on left side with intermittent sharp pain. Raidates to right
neck. Denies any SOB. Reports nausea. No diaphoresis. No headache, dizziness, blurred vision. States she had a similar event approx 3 months ago. She was seen by Dr. Clemente, cardiology at [facility]. Had a stress test which she states she was
told there was something 'off'. Same comment for her EKG at that time. States cardiology is continuing to monitor, advised her tocome to ED for any changes. Brought self to ED for eval.
Past History
<Kristi Reynolds PA-C - Last Filed: 09/16/24 18:39>
Past History
ED Past Medical History: HTN
ED Past Surgical History: Gynecological
Review of Systems
<Maranda Alva NP - Last Filed: 09/16/24 18:29>
Review of Systems
All Other Systems: ROS reviewed and negative except as documented in HPI and ROS
Constitutional: Reports no symptoms
EENT: Reports no symptoms
Respiratory: Reports no symptoms
Cardiac: Reports chest pain
ABD/GI: Reports no symptoms
: Reports no symptoms
Musculoskeletal: Reports no symptoms
Skin: Reports no symptoms
Neurological: Reports no symptoms
Psychiatric: Reports no symptoms
Phy Exam
<Maranda Alva NP - Last Filed: 09/16/24 18:29>
General Physical Exam
General Presentation: well appearing and no apparent distress
General age: appears stated age
General Skin: warm and dry
General Habitus: normal
General Mental: alert
Cardiovascular Exam
Cardiovascular Exam: regular rate/rhythm and no edema
Pulmonary Exam
Pulmonary Exam: lungs clear and no respiratory distress
Gastrointestinal Exam
Gastrointestinal Exam: normal bowel sounds, non tender, soft and no organomegaly
Musculoskeletal Exam
Musculoskeletal Exam: full ROM and neuro vasc intact
Skin Exam
Skin Exam: normal color, warm/dry and no rash
Psychiatric Exam
Psychiatric Exam: normal mood/affect
Scores
<Kristi Reynolds PA-C - Last Filed: 09/16/24 18:39>
Heart Score for Chest Pain Patients
Heart Score for Chest Pain Patients: 0
Heart Score Risk: 2.5% MACE over next 6 weeks
<Maranda Alva DECAL APPLIER - Last Filed: 09/16/24 18:29>
Heart Score for Chest Pain Patients
STEMI patient?: No
History: Slightly or Non-Suspicious
ECG: Normal
Age: </= 45 years
Risk Factors: No Risk Factors
Troponin: </= Normal Limit
Heart Score for Chest Pain Patients: 0
Heart Score Risk: 2.5% MACE over next 6 weeks
Course
<Kristi Reynolds PA-C - Last Filed: 09/16/24 18:39>
Orders/Labs/Results
Orders:
Orders
09/16/24 13:33
Electrocardiogram (*1) Urgent
Reason for Study: Chest Pain
EKG- Treatment ONCE
09/16/24 13:43
CR Chest - 2 Views Urgent
Comment:
Reason For Exam: CP
09/16/24 13:47
Complete Blood Count/With Diff Urgent
Comprehensive Metabolic Panel Urgent
Troponin I Urgent
09/16/24 16:55
D-Dimer Urgent
09/16/24 17:07
Troponin I Urgent
09/16/24 13:47
09/16/24 13:47
Vital Signs
Initial and Last Documented VS:
Initial Vital Signs
Temp Pulse Resp BP Pulse Ox
98.3 F 90 16 155/111 100
09/16/24 13:36 09/16/24 13:36 09/16/24 13:36 09/16/24 13:36 09/16/24 13:36
Last Documented Vital Signs
Temp Pulse Resp BP Pulse Ox
98.3 F 79 14 117/87 98
09/16/24 13:36 09/16/24 18:15 09/16/24 18:15 09/16/24 18:00 09/16/24 18:15
<Maranda Alva NP - Last Filed: 09/16/24 18:29>
Orders/Labs/Results
Orders:
Orders
09/16/24 13:33
Electrocardiogram (*1) Urgent
Reason for Study: Chest Pain
EKG- Treatment ONCE
09/16/24 13:43
CR Chest - 2 Views Urgent
Comment:
Reason For Exam: CP
09/16/24 13:47
Complete Blood Count/With Diff Urgent
Comprehensive Metabolic Panel Urgent
Troponin I Urgent
09/16/24 16:55
D-Dimer Urgent
09/16/24 17:07
Troponin I Urgent
09/16/24 13:47
09/16/24 13:47
Vital Signs
Initial and Last Documented VS:
Initial Vital Signs
Temp Pulse Resp BP Pulse Ox
98.3 F 90 16 155/111 100
09/16/24 13:36 09/16/24 13:36 09/16/24 13:36 09/16/24 13:36 09/16/24 13:36
Last Documented Vital Signs
Temp Pulse Resp BP Pulse Ox
98.3 F 79 14 117/87 98
09/16/24 13:36 09/16/24 18:15 09/16/24 18:15 09/16/24 18:00 09/16/24 18:15
<Maranda Alva NP - Last Filed: 09/16/24 18:29>
*Radiology
Radiology exam reviewed: radiology read reviewed
*Pulse Oximetry
Patient hypoxic: no
*Critical Care Note
Total Time (30-74mins, 75-104mins- exclusive of procedures): Not Applicable
<Maranda Alva NP - Last Filed: 09/16/24 18:29>
Update Note
Update Note:
Patient to ED with complaint of chest pain x 3 days. Reports some nausea. No vomiting or diaphoresis. No dizziness or vision changes. Labs, EKG reviewed. No concerning findings. troponin neg x 2, ddimer neg. Physicial exam without concerning
findings. Will discharge home and she will follow up with her PCP and gas collection system operator. Given instructions on s/s to return to ED and she is agreeable to plan.
ED Attending Note
<Kristi Reynolds PA-C - Last Filed: 09/16/24 18:39>
-
Portions of this chart may have been created with voice recognition software.� Occasional wrong word or��sound alike� substitutions may have occurred due to the inherent limitations of voice recognition software.
Discharge Plan
Departure
Patient Disposition: Home (Routine Discharge)
Date of Disposition: 09/16/24
Time of Disposition: 18:28
Patient with high blood pressure during this ER visit?: No
Condition: Good
Covid-19: Not Applicable
Discharge Problem:
Chest pain
Instructions: Chest Pain That Is Not Caused by the Heart (DC), Chest Pain NON-DHP Game Advisor Follow Up
Prescriptions:
No Action
meclizine 25 mg tablet
25 mg PO TID PRN (Reason: vertigo)
amlodipine 10 mg tablet
10 mg PO DAILY PRN (Reason: high BP)
Patient Comments:
12/28/2023: Pt states she will take if her blood pressure is 140/90 or above. But hasn't taken lately due to BP being lower
cyanocobalamin (vitamin B-12) 1,000 mcg Tablet
1,000 mcg PO DAILY Qty: 30 0RF
ergocalciferol (vitamin D2) 1,250 mcg (50,000 unit) Capsule
1,250 mcg PO Q7D 90 Days Qty: 13 0RF
cholecalciferol (vitamin D3) 50 mcg (2,000 unit) Tablet
50 mcg PO DAILY Qty: 30 0RF
polyethylene glycol 3350 17 gram/dose powder
17 g PO DAILY Qty: 510 0RF
Referrals:
Danny Reich DO [Family Provider] -
Activity Restrictions/Additional Instructions:
Return to the emergency department immediately for any changes in/worsening of your symptoms.
Interventions
Interventions:
*Risk Screen - Suicide Last Done: 09/16/24 13:36
*General Assessment Last Done: 09/16/24 13:36
*Neglect/Abuse Screening Last Done: 09/16/24 13:36
ED- Fall Risk Assessment Last Done: 09/16/24 16:58
*ED COVID-19 Vaccine History Last Done: 09/16/24 13:36
ED- Cardiac Assessment Last Done: 09/16/24 16:57
Discharge Date and Time
Print Language: DANISH
[2024-09-16 14:00] LABS: % Basophils 0.4 % (0-2); % Eosinophils 0.9 % (0-6); % Immature Granulocytes 0.3 % (0-0.5); % Lymphocytes 21.9 % (20.5-51.1); % Neutrophils 68.5 % (42.2-75.2); Absolute Eosinophils 0.1 10^3/uL (0-0.7); Absolute Lymphocytes 1.5 10^3/uL (1.2-3.4); Absolute Monocytes 0.5 10^3/uL (0.1-0.6); Absolute Neutrophils 4.6 10^3/uL (1.4-6.5); Hematocrit 38.8 % (37.0-47.0); Hemoglobin 12.9 g/dL (12.0-16.0); Mean Corp Hgb Conc. 33.2 g/dL (33.0-37.0); Mean Corpuscular Hgb 28.3 pg (27.0-31.0); Mean Corpuscular Volume 85.1 fL (81.0-99.0); Mean Platelet Volume 10.3 fL (7.4-10.4); Nucleated Red Blood Cells % 0 %; Platelet Count 274 10^3/uL (130-400); Red Blood Cell Count 4.56 10^6/uL (4.20-5.40); Red Cell Dist. Width 12.6 % (11.5-14.5); White Blood Cell Count 6.7 10^3/uL (4.8-10.8)
[2024-09-16 14:14] LABS: ALT (SGPT) 14 U/L (0-35); AST (SGOT) 19 U/L (14-36); Albumin 4.4 g/dl (3.5-5.0); Alkaline Phosphatase 57 U/L (38-126); Blood Urea Nitrogen 13 mg/dl (7-17); Calcium 9.2 mg/dl (8.4-10.2); Carbon Dioxide 26 mmol/L (22-30); Chloride 105 mmol/L (98-107); Glucose 92 mg/dl (70-99); Potassium 4.3 mmol/L (3.5-5.1); Sodium 140 mmol/L (135-145); Total Bilirubin 0.3 mg/dl (0.2-1.3); Total Protein 7.1 g/dl (6.3-8.2); eGFR > 60.00
[2024-09-16 14:24] LABS: Troponin I < 0.012 ng/ml
[2024-09-16 15:54] VITALS: BMI 32.8
[2024-09-16 16:08] VITALS: BP 114/83
[2024-09-16 17:00] VITALS: BP 119/81
[2024-09-16 17:20] LABS: D-Dimer 0.33 ug/mlFEU (0.00-0.50)
[2024-09-16 17:38] LABS: Troponin I < 0.012 ng/ml
[2024-09-16 18:00] VITALS: BP 117/87
== END 2024-09-16 18:43 | disposition home or self-care (01) ==
LOC: EMR 13:32
PROVIDERS: Nurse Practitioner; Physician Assistant; EMERGENCY PHYSICIAN Emergency Medicine; FAMILY PHYSICIAN Family Medicine
DX: R07.89 Other chest pain (principal); I10 Essential (primary) hypertension
CPT/HCPCS: 99285; 71046; 80053; 84484; 85025; 85379; 93005; 99284

== ENCOUNTER 2025-06-05 08:20 | Emergency (ER) | payer BC, OTHER, SELFPAY ==
[2025-06-05 08:22] VITALS: BP 140/95
--- NOTE | 2025-06-05 09:01 | ED.GENMED ---
History of Present Illness
General
Chief Complaint: DVT/Possible Blood Clot
Time Seen by Provider: 06/05/25 08:48
Nursing documentation reviewed up to this point in time: agreed with
History of Present Illness
History of Present Illness:
44-year-old female presents to the ER for evaluation of pain in her left foot which started last evening. She reports it to be severe along the middle of her foot and has been radiating up her leg throughout the night. She denies any trauma. No
fevers or chills. No prior history of extremity DVT-she states that she had a blood clot when she was with her daughter and reports that the blood clot was in her stomach. She was diagnosed with MS within the last year and has recently
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 She states that she checks her blood sugars regularly and they have been
yssx-[id number]-hdck evening was 95. She denies any chest pain or shortness of breath. She denies any insect bites. She has not tried any dsxc-ieb-chvxggs medications for her symptoms.
Past History
Past History
ED Past Medical History: HTN
ED Past Surgical History: Gynecological
Review of Systems
Review of Systems
Allergies reviewed?: Yes
Phy Exam
Physical Exam
Physical Exam:
Patient is awake, alert, appears in no acute distress, sclera anicteric, bilateral lower extremities are examined, there is no calf pain on palpation bilateral lower extremities, minimal swelling noted along medial mid to hindfoot of the left foot
only with mild erythema overlying this area, skin is intact, no proximal streaking, no palpable cords, no induration, no excessive warmth in comparison to palpation of normal right foot, 2+ DP pulses present symmetric with brisk cap refill to the
toes, GCS is 15
Course
Orders/Labs/Results
Orders:
Orders
06/05/25 08:25
Periph Venous Lwr Ext Left US [US Periph Venous LOWER Ext LT] Urgent
Comment: hx of DVT
Reason For Exam: swelling, pain
06/05/25 09:00
Acetaminophen [Tylenol] 1,000 mg PO NOW STA
Foot, Left 3 View [CR Foot - Left Min 3 Views] Urgent
Comment: atraumatic, pain along medial mid-hind foot
Reason For Exam: pain
Vital Signs
Initial and Last Documented VS:
Initial Vital Signs
Temp Pulse Resp BP Pulse Ox
98.6 F 92 20 140/95 98
06/05/25 08:22 06/05/25 08:22 06/05/25 08:22 06/05/25 08:22 06/05/25 08:22
Last Documented Vital Signs
Temp Pulse Resp BP Pulse Ox
98.6 F 92 20 140/95 98
06/05/25 08:22 06/05/25 08:22 06/05/25 08:22 06/05/25 08:22 06/05/25 09:04
MDM/Problems Addressed
Differential Diagnosis Includes:
Differential diagnosis to consider but not limited to DVT, muscle strain, early cellulitis, MS flare along with other etiologies considered
Chronic conditions affecting care:
MS, hypertension, migraines
*Radiology
Radiology exam reviewed: preliminary read by ED provider (I independently viewed and interpreted x-ray of the left foot showing no fracture, no malalignment) and radiology read reviewed (Ultrasound left lower extremity negative)
*Pulse Oximetry
SaO2: 98
Oxygen Mode of Delivery: Room air
Patient hypoxic: no
*Critical Care Note
Total Time (30-74mins, 75-104mins- exclusive of procedures): Not Applicable
Update Note
Update Note:
I discussed with patient overall reassuring exam. I discussed with her appearance of minor irritation in the skin overlying area of concern, otherwise no evidence for blood clot seen on ultrasound. I discussed with her my interpretation of x-ray
of the foot showing no acute process. I discussed with her supportive treatment and benefit of follow-up with primary care physician. We discussed possible etiology of symptoms related to possible early cellulitis versus minor skin irritation
versus MS flare. Patient agrees with plan for discharge to follow-up with her specialists for her already scheduled outpatient workup, and has no questions at the current time.
ED Attending Note
-
Portions of this chart may have been created with voice recognition software.� Occasional wrong word or��sound alike� substitutions may have occurred due to the inherent limitations of voice recognition software.
Discharge Plan
Departure
Patient Disposition: Home (Routine Discharge)
Date of Disposition: 06/05/25
Time of Disposition: 09:56
Patient with high blood pressure during this ER visit?: No
Discharge Problem:
Acute pain
Instructions: Skin rash - ED (DC)
Prescriptions:
No Action
meclizine 25 mg tablet
25 mg PO TID PRN (Reason: vertigo)
amlodipine 10 mg tablet
10 mg PO DAILY PRN (Reason: high BP)
Patient Comments:
12/28/2023: Pt states she will take if her blood pressure is 140/90 or above. But hasn't taken lately due to BP being lower
cyanocobalamin (vitamin B-12) 1,000 mcg Tablet
1,000 mcg PO DAILY Qty: 30 0RF
ergocalciferol (vitamin D2) 1,250 mcg (50,000 unit) Capsule
1,250 mcg PO Q7D 90 Days Qty: 13 0RF
cholecalciferol (vitamin D3) 50 mcg (2,000 unit) Tablet
50 mcg PO DAILY Qty: 30 0RF
polyethylene glycol 3350 17 gram/dose powder
17 g PO DAILY Qty: 510 0RF
Referrals:
Danny Reich DO [Family Provider, Family Practice]
Activity Restrictions/Additional Instructions:
Please wear a hard soled shoe in order to help with ambulation. Please use Tylenol as available eqig-ass-artvskm as needed for discomfort. You may also try fhcr-thn-tuipsdf remedies such as hydrocortisone cream or Voltaren cream to help with skin
irritation noted over area of concern. Please follow-up with your primary care physician in 24-48 hours for reevaluation and further care. Return to the ER for any concern
Interventions
Interventions:
*Risk Screen - Suicide Last Done: 06/05/25 08:22
*General Assessment Last Done: 06/05/25 08:22
Discharge Date and Time
Print Language: [place]
[2025-06-05] MEDS: TYLENOL 1000 MG PO (09:35)
[2025-06-05 10:50] VITALS: BP 118/97
== END 2025-06-05 10:50 | disposition home or self-care (01) ==
LOC: EMR 08:20
PROVIDERS: EMERGENCY PHYSICIAN Emergency Medicine; FAMILY PHYSICIAN Family Medicine
DX: M79.672 Pain in left foot (principal); M79.605 Pain in left leg; M79.89 Other specified soft tissue disorders; G35 Multiple sclerosis; I10 Essential (primary) hypertension; Z86.718 Personal history of other venous thrombosis and embolism
CPT/HCPCS: 99284; 73630; 93971

== ENCOUNTER 2025-07-10 00:06 | Emergency (ER) | payer BC, OTHER, SELFPAY ==
[2025-07-10 00:13] VITALS: BP 140/98
[2025-07-10 00:29] VITALS: BMI 26.7
--- NOTE | 2025-07-10 00:40 | ED.GENMED ---
History of Present Illness
General
Chief Complaint: Abdominal Pain
Source: patient and significant other
Time Seen by Provider: 07/10/25 00:28
History of Present Illness
History of Present Illness:
This patient is a 44-year-old female presents emergency department complaints of pain at the 'rib cage' that radiates around to the left back area. This pain began gradually approximately 9 AM and has been getting worse throughout the day. She did
have vomiting x 1 this morning, otherwise no vomiting. She is eating and drinking as usual and denies abdominal pain, leg swelling, estrogen use, recent immobilization, recent trauma. She notes intermittently mild dyspnea, none currently. She
denies hemoptysis, neck pain, headache, dizziness. She does note that the pain is pleuritic. Patient notes she had a DVT .
Past History
Past History
ED Past Medical History: HTN and Other (DVT , MS, renal artery stenosis)
ED Past Surgical History: Cholecystectomy, Gynecological and Other (Lap band insertion and then removal)
Social History
Tobacco: Non-smoker
Alcohol: Occasional
Drug: None
Phy Exam
Physical Exam
Physical Exam:
GENERAL: Alert , in no apparent distress, at times laughing, pleasant
EYE: pupils equal and reactive
NECK: Supple, no significant adenopathy.
ENT: o/p clr, mmm.
CARDIAC: Regular rate and rhythm .
LUNGS: Clear breath sounds bilaterally, no acute respiratory distress, no wheezes/rales/rhonchi. No rash noted at thorax, no crepitus. Does have tenderness to palpation at the lower costal margin
ABDOMEN: Soft, without focal tenderness, no r/g, no cvat
NEUROLOGICAL: Alert and oriented, no focal neuro deficits
SKIN: Warm and dry, skin intact.
MUSCULOSKELETAL: No edema, well perfused.
PSYCH: Normal and appropriate interaction.
Course
Orders/Labs/Results
Orders:
Orders
07/10/25 00:22
Urinalysis Reflex To Culture Urgent
Date Specimen was Collected: 07/10/25
Time Specimen was Collected: 00:22
Test Result ONCE
07/10/25 00:38
ECG [Electrocardiogram (*1)] Urgent
Reason for Study: Chest Pain
EKG- Treatment ONCE
07/10/25 00:51
Complete Blood Count/With Diff Urgent
Comprehensive Metabolic Panel Urgent
D-Dimer Urgent
HCG, Serum Qualitative Screen Urgent
Comment: Notify provider if positive test present
Lipase Urgent
07/10/25 01:46
Ketorolac [Toradol] 15 mg IV NOW STA
Abnormal Lab Results
07/10/25
00:51
RBC 4.18 L 10^6/uL
(4.20-5.40)
Hgb 11.8 L g/dL
(12.0-16.0)
Hct 35.6 L %
(37.0-47.0)
MPV 10.5 H fL
(7.4-10.4)
Lymphocytes % 20.3 L %
(20.5-51.1)
Chloride 109 H mmol/L
(98-107)
Glucose 103 H mg/dl
(70-99)
07/10/25 00:51
07/10/25 00:51
Vital Signs
Initial and Last Documented VS:
Initial Vital Signs
Temp Pulse Resp BP Pulse Ox
98.7 F 82 20 140/98 98
07/10/25 00:13 07/10/25 00:13 07/10/25 00:13 07/10/25 00:13 07/10/25 00:13
Last Documented Vital Signs
Temp Pulse Resp BP Pulse Ox
98.7 F 76 16 116/79 100
07/10/25 00:13 07/10/25 01:31 07/10/25 01:31 07/10/25 01:25 07/10/25 01:31
*Pulse Oximetry
SaO2: 98
Patient hypoxic: no
*Critical Care Note
Total Time (30-74mins, 75-104mins- exclusive of procedures): Not Applicable
Update Note
Update Note:
Patient presents to the Emergency Department with ____lower anterior thorax pain on the left radiating around to the back
Number and Complexity of Problems Addressed at the Encounter
� Chronic conditions affecting care:
� Acute Exacerbation and/or Progression of Chronic Illness:
� Differential Diagnosis includes: But not limited to pleurisy, PE, rib fracture, pericarditis, pneumothorax, kidney stone, etc. etc.
Amount and/or Complexity of Data to be Reviewed and Analyzed
� I performed an independent evaluation of and my interpretation is:
EKG: Read by me, normal sinus rhythm, normal rate, normal axis, no abnormalities to suggest pericarditis, ACS
CT:
Xrays: Patient declined
Laboratory Studies: Generally unremarkable, D-dimer negative
Other:
� Review of other/old records reveals:
� Clinical information was obtained by an independent historian:
� Prescriptions/Medications Considered but not given:
� Further testing considered but not performed:
Risk of Complications and/or Morbidity or Mortality of Patient Management
� Social determinants of health affecting care:
� Discussion with other providers (PCP, Hospitalists, Consultants, etc):
� Escalation of care including admission/observation vs risk of discharge considered: 1:47 AM patient remains well-appearing in no distress, no dyspnea, pulse ox normal. Workup generally unremarkable here thus far. Recommend
chest x-ray however patient declines, would prefer to go home take nonsteroidals and follow-up with her doctor. Of note, lungs CTA, no respiratory distress. Discussed with patient importance of follow-up and reasons return to the ER. Significant
other at bedside.
ED Attending Note
-
Portions of this chart may have been created with voice recognition software.� Occasional wrong word or��sound alike� substitutions may have occurred due to the inherent limitations of voice recognition software.
Discharge Plan
Departure
Patient Disposition: Home (Routine Discharge)
Date of Disposition: 07/10/25
Time of Disposition: 01:47
Patient with high blood pressure during this ER visit?: Yes
Condition: Good
Discharge Problem:
Chest pain
Instructions: BLOOD PRESSURE, Chest Pain
Prescriptions:
No Action
cyanocobalamin (vitamin B-12) 1,000 mcg tablet
1,000 mcg PO DAILY
cholecalciferol (vitamin D3) 50 mcg (2,000 unit) tablet
50 mcg PO DAILY
albuterol sulfate [Ventolin HFA] 90 mcg/actuation Hfa Aerosol Inhaler
2 puff INHALATION Q6H PRN (Reason: ASTHMA)
nebivolol 10 mg tablet
10 mg PO DAILY
Kesimpta Pen 20 mg/0.4 mL pen injector
20 mg SC MONTHLY
Qulipta 60 mg tablet
60 mg PO DAILY
Mounjaro 15 mg/0.5 mL pen injector
15 mg SC SA
telmisartan 40 mg Tablet
40 mg PO DAILY
Referrals:
Danny Reich DO [Family Provider, Family Practice] - Follow up in 2-3 days
Activity Restrictions/Additional Instructions:
IF YOU DEVELOP INCREASING NEW OR PERSISTENT PAIN, ANY FEVER, VOMITING, DIZZINESS, TROUBLE BREATHING, BLEEDING, OR OTHER WORRISOME SIGNS, PLEASE RETURN TO THE ER IMMEDIATELY!
Interventions
Interventions:
*Risk Screen - Suicide Last Done: 07/10/25 00:13
*General Assessment Last Done: 07/10/25 00:34
*Neglect/Abuse Screening Last Done: 07/10/25 00:13
*ED- Fall Risk Assessment Last Done: 07/10/25 00:34
PO-Ernmgi-Lmkhqzfvvt Assessment Last Done: 07/10/25 00:35
Discharge Date and Time
Print Language: [id number]
[2025-07-10 01:01] LABS: Hematocrit 35.6 % (37.0-47.0); Hemoglobin 11.8 g/dL (12.0-16.0); Mean Corp Hgb Conc. 33.1 g/dL (33.0-37.0); Mean Corpuscular Volume 85.2 fL (81.0-99.0); Nucleated Red Blood Cells % 0 %; Platelet Count 256 10^3/uL (130-400); Red Cell Dist. Width 13.0 % (11.5-14.5)
[2025-07-10 01:20] LABS: HCG, Serum Qualitative Screen Negative
[2025-07-10 01:22] LABS: D-Dimer 0.29 ug/mlFEU (0.00-0.50)
[2025-07-10 01:25] VITALS: BP 116/79
[2025-07-10 01:26] LABS: ALT (SGPT) 26 U/L (0-35); AST (SGOT) 26 U/L (14-36); Albumin 4.4 g/dl (3.5-5.0); Alkaline Phosphatase 48 U/L (38-126); Blood Urea Nitrogen 12 mg/dl (7-17); Calcium 9.0 mg/dl (8.4-10.2); Carbon Dioxide 25 mmol/L (22-30); Chloride 109 mmol/L (98-107); Estimated Creatinine Clearance 99 ml/min; Glucose 103 mg/dl (70-99); Lipase 252 U/L (23-300); Potassium 3.9 mmol/L (3.5-5.1); Sodium 141 mmol/L (135-145); Total Protein 6.8 g/dl (6.3-8.2); eGFR > 60.00
[2025-07-10] MEDS: TORADOL 15 MG IV (01:57)
== END 2025-07-10 02:05 | disposition home or self-care (01) ==
LOC: EMR 00:06
PROVIDERS: EMERGENCY PHYSICIAN Emergency Medicine; FAMILY PHYSICIAN Family Medicine
DX: R07.9 Chest pain, unspecified (principal); I10 Essential (primary) hypertension; Z86.718 Personal history of other venous thrombosis and embolism; Z90.49 Acquired absence of other specified parts of digestive tract
CPT/HCPCS: 96374; 99284; 80053; 83690; 84703; 85025; 85379; 93005